=== PATIENT | female | born 1965 | race Caucasian/White ===

== ENCOUNTER 2020-01-04 02:44 | Outpatient (CLI) | payer OTHER, SELFPAY ==
[2020-01-04 18:57] LABS: SARS-CoV-2 RNA PCR Negative
== END 2020-01-04 02:45 | disposition home or self-care (01) ==
LOC: ANHCOVIDDT 02:44
PROVIDERS: PCP Family Medicine; Visit Provider Internal Medicine Gastroenterology
DX: Z01.812 Encounter for preprocedural laboratory examination (principal); Z11.59 Encounter for screening for other viral diseases
CPT/HCPCS: 87635; C9803; U0003

== ENCOUNTER 2020-01-07 01:01 | Day surgery (SDC) | payer OTHER, SELFPAY ==
[2019-12-31 09:10] VITALS: BMI 32.0
[2020-01-07 07:26] VITALS: BP 126/81; PULSE 84; RESP 18; TEMP 36.7; O2SAT 100
[2020-01-07] MEDS: LACTATED RINGERS 1,000 ML 150 ML IV CONT (07:43)
--- NOTE | 2020-01-07 07:45 | WPDANESEPPF ---
Anes - Initial Pre Proc Eval Procedure: Operation Date: 01/07/20 08:30 Proposed Procedures p Screening Colonoscopy - Francis Roach MD Date/Time: 01/07/20 07:45 Surgeon: Francis Roach MD Pre Op Diagnosis: neoplasm screening Patient Data Age: 54 Gender: F Height: 5 ft 6 in Weight: 92 kg Last Vital Signs Temp 98.0 F 01/07/20 07:26 Pulse 84 01/07/20 07:26 Resp 18 01/07/20 07:26 BP 126/81 01/07/20 07:26 Pulse Ox 100 01/07/20 07:26 Allergies Allergy/AdvReac Type Severity Reaction Status Date / Time poison seb extract Allergy Itching Verified 01/07/20 07:25 Home Medications Medication Instructions Recorded Confirmed Type No Home Medications 12/31/19 01/07/20 History Patient hx anesthesia problems: none Family hx anesthesia problems: none PMFSH Past Medical History Medical History (Updated 01/07/20 @ 07:45 by Khari Olson MD) Healthy adult Social History Social History Gender identity (if verbalized by the patient): Female Sexual Orientation (if Verbalized by the Patient): Straight or Heterosexual Anes - Eval Final PreProcedure Day of Procedure 01/07/20 07:45 Patient weight: overweight Heart: regular rate and rhythm Lungs: clear to auscultation Airway: Mallampati scale class II Neurological: alert and oriented Last oral intake: >/= 8 hours ASA classification: II Emergent: no Anesthetic plan: proceed Anesthesia type and monitoring: general GIVS and standard monitoring Informed Consent: The patient's anesthetic plan and its attendant risks and benefits were discussed with the patient/family/POA. Questions were solicited and answers provided to the satisfaction of the patient/family/POA.
--- NOTE | 2020-01-07 07:54 | WPDGICN ---
Assessment and Plan Assessment and plan (1) Colonoscopy planned: Status: Acute Assessment and Plan: Patient have neoplasia screening colonoscopy today. High-fiber diet advised. Further recommendations may be given after endoscopy. GI Consult Note Consult date/time: 01/07/20 07:54 HPI: Vikki Salazar is a 54 year old female Seen in evaluation at the request of Dr. Stephon Carpenter. Patient presents for screening colonoscopy. Patient's current weight appetite bowel was normal. She denies abdominal pain. She denies any bleeding. Her weight appetite bowel movements are normal. Family history is noncontributory as well. Review of Systems Review of Systems: All systems reviewed & are unremarkable except as noted in HPI and below PMFSH Past Medical History Medical History Healthy adult Social History Social History Gender identity (if verbalized by the patient): Female Sexual Orientation (if Verbalized by the Patient): Straight or Heterosexual Meds Home Medications and Allergies Home Medications Medication Instructions Recorded Confirmed Type No Home Medications 12/31/19 01/07/20 History Allergies Allergy/AdvReac Type Severity Reaction Status Date / Time poison seb extract Allergy Itching Verified 01/07/20 07:25 Vital Signs Vital Signs - 24 hr 01/07/20 07:26 Temperature 98.0 F Pulse Rate 84 Respiratory Rate 18 Blood Pressure 126/81 Pulse Oximetry 100 Exam Narrative: Exam Narrative: Physical exam reveals Vital Signs to be stable. HEENT exam unremarkable. Lungs are clear to auscultation and percussion. Heart is without murmur or extra sounds. Abdominal exam bowel sounds are present soft nontender with no hepatosplenomegaly. Digital external rectal exam is normal.
[2020-01-07 09:03] VITALS: BP 108/65; PULSE 68; RESP 16; O2SAT 100
[2020-01-07 09:13] VITALS: BP 117/75; PULSE 67; RESP 18; O2SAT 100
[2020-01-07 09:23] VITALS: BP 137/85; PULSE 62; RESP 19; O2SAT 100
== END 2020-01-07 09:33 | disposition home or self-care (01) ==
PROVIDERS: PCP Family Medicine; Visit Provider Internal Medicine Gastroenterology
PROC: 0DJD8ZZ Inspection of Lower Intestinal Tract, Via Natural or Artificial Opening Endoscopic (ICD-10-PCS; CPT 45378; principal; 2020-01-07 08:30)
DX: Z12.11 Encounter for screening for malignant neoplasm of colon (principal); D12.5 Benign neoplasm of sigmoid colon; K64.8 Other hemorrhoids
CPT/HCPCS: 45385; 87635; 88305; C9803; J2704; J7120; U0003

== ENCOUNTER 2020-09-07 08:16 | Emergency (ER) | payer SELFPAY | END 2020-09-07 08:30 | disposition left against medical advice (07) | LOC: EXPCOLL 08:24 | PROVIDERS: Emergency Provider Nurse Practitioner Family; PCP Family Medicine | DX: Z53.21 Procedure and treatment not carried out due to patient leaving prior to being seen by health care provider (principal) | CPT/HCPCS: 99199 ==

== ENCOUNTER 2021-03-13 13:09 | Outpatient (CLI) | payer OTHER, SELFPAY ==
--- NOTE | ~2021-03-13 | MM_ITS ---
EXAMINATION: MM diagnostic keisha BI w bety HISTORY: Follow-up bilateral breast asymmetries/masses TECHNIQUE: Additional 3-D tomosynthesis images of the breasts were performed and synthetic 2-D images were generated. CAD analysis was submitted and interpreted. COMPARISON: Comparison to multiple prior studies sequentially, with oldest reviewed study dated 03/30. BREAST PARENCHYMAL COMPOSITION: The breasts are heterogenously dense, which may obscure small masses FINDINGS: There are no new masses, calcifications or architectural distortion in either breast to sug gest malignancy. The breasts are stable. IMPRESSION: 1. No mammographic evidence for malignancy in either breast. 2. Routine yearly screening mammogram and regular clinical breast examination are recommended. BI-RADS Category 1: Negative Reviewed, dictated and finalized at location A. IMPRESSION: 1. No mammographic evidence for malignancy in either breast. 2. Routine yearly screening mammogram and regular clinical breast examination a re recommended. BI-RADS Category 1: Negative
== END 2021-03-13 13:10 | disposition home or self-care (01) ==
LOC: ANHIMG 13:12
PROVIDERS: PCP Family Medicine; Visit Provider Family Medicine
DX: R92.8 Other abnormal and inconclusive findings on diagnostic imaging of breast (principal)
CPT/HCPCS: 77062; 77066; G0279

== ENCOUNTER → 2021-04-27 11:15 | Outpatient (CLI) | payer OTHER, SELFPAY ==
--- NOTE | ~2021-04-27 | XR_ITS ---
EXAMINATION: XR knee RT 2V DATE: 04/27/2021 11:50 INDICATION: Right knee pain. TECHNIQUE: 2 views of right knee standing were obtained. COMPARISON: None. FINDINGS: Bone alignment is normal. No fracture. There is mild tricompartmental osteoarthritis charac terized by marginal osteophytes. No joint space narrowing. No knee joint effusion. IMPRESSION: 1. Mild right knee osteoarthritis. Reviewed, dictated and finalized at location A. IC CUTTER
== END ==
PROVIDERS: PCP Family Medicine; Visit Provider Physician Assistant
DX: M17.11 Unilateral primary osteoarthritis, right knee (principal)
CPT/HCPCS: 73560

== ENCOUNTER 2021-06-16 09:28 | Outpatient (CLI) | payer OTHER, SELFPAY ==
--- NOTE | ~2021-06-16 | MR_ITS ---
EXAMINATION: MR abdomen wo/w con DATE: 06/16/2021 10:40 INDICATION: Liver lesion seen on CT TECHNIQUE: Magnetic resonance imaging (MRI) of the abdomen was performed without and with 19 mL Multi jasson intravenous contrast. Sequences included coronal T2-weighted SS-FSE, coronal and axial FS 2D-F IESTA, axial STIR FSE, axial T2-weighted SS-FSE, axial T2-weighted FS SS-FSE, axial diffusion-weighte d SE, axial dual-echo T1-weighted FSPGR, and axial and coronal T1-weighted LAVA. Postcontrast axial T 1-weighted LAVA images were obtained in a time course. Postcontrast coronal T1-weighted LAVA images w ere obtained. COMPARISON: None FINDINGS: Heart size is normal. No pericardial or pleural effusion. 7.0 x 5.7 x 5.7 cm T2 hyperintense mass in segment 7 of the right hepatic lobe with lobular margins and with peripheral discontiguous puddling o f contrast which fills in on delayed images diagnostic of a hemangioma. There are 2 additional smalle r hemangiomas with similar imaging features measuring 2.0 cm also in segment 7 and 2.5 cm segment 6. Gallbladder, pancreas, spleen, bilateral adrenal glands and kidneys are normal. 4 cm fibroid at the p osterior uterine fundus. No pathologically enlarged abdominal lymphadenopathy. Moderate to severe lum bar spondylosis. IMPRESSION: 1. There are 3 hepatic hemangiomas in the right hepatic lobe, the largest measuring 7.0 cm. 2. 4 cm uterine fibroid. Reviewed, dictated and finalized at location A. 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 There are 3 hepatic hemangiomas in the right hepatic lobe, the largest measu ring 7.0 cm. 2. 4 cm uterine fibroid.
[2021-06-16 09:59] LABS: Estimated Glomerular Filt Rate > 60
== END 2021-06-16 09:29 | disposition home or self-care (01) ==
LOC: ANHIMG 09:36
PROVIDERS: PCP Family Medicine; Visit Provider Family Medicine
DX: K76.9 Liver disease, unspecified (principal); D25.9 Leiomyoma of uterus, unspecified
CPT/HCPCS: 74183; A9577

== ENCOUNTER 2021-08-20 08:11 | Outpatient (CLI) | payer OTHER, SELFPAY ==
[2021-08-20 08:40] LABS: Hematocrit 41.7 % (37.0-47.0); Hemoglobin 13.7 g/dL (12.0-15.0); Mean Corpuscular HGB Conc 32.9 g/dl (32-36); Mean Corpuscular Hemoglobin 29.5 pg (26-34); Mean Corpuscular Volume 89.7 fl (80-100); Mean Platelet Volume 9.1 fl (7.4-10.4); Platelet Count Result 250 k/mm3 (150-375); Red Blood Count 4.65 M/mm3 (4.2-5.4); Red Cell Distribution Width 13.4 % (11.5-14.5); White Blood Count 6.5 K/mm3 (4.5-10.0)
== END 2021-08-20 08:12 | disposition home or self-care (01) ==
PROVIDERS: PCP Family Medicine; Visit Provider Student in an Organized Health Care Education/Training Program
DX: D21.9 Benign neoplasm of connective and other soft tissue, unspecified (principal)
CPT/HCPCS: 36415; 85027; 86850; 86900; 86901

== ENCOUNTER 2021-08-27 00:13 | Day surgery (SDC) | payer OTHER, SELFPAY ==
[2021-08-18 09:52] VITALS: BMI 35.2
--- NOTE | 2021-08-18 10:09 | PC.NURSE ---
Report to the Outpatient Waiting Room, entrance under the green pavilion located off [facility], at time 10:00 on date 08/27/21. OR Time: 12:00. - You and your visitor will be asked a series of questions to screen for COVID 19 for your protection. - A mask is required within the hospital. One visitor will be allowed to accompany the patient into the hospital. Patients visitor will be instructed to remain with patient at all times or leave the building. We will allow the visitor to come back to the postoperative area when patient is ready. Preoperative COVID Testing Requirements: No COVID Test needed if: (proof is required; if not received patient will have Rapid Test prior to entry) - Patient has received COVID Vaccine at least 14 days prior to procedure date or - Patient has positive COVID test result within last 90 days of surgery date. COVID Test needed if above criteria is not met Patients may have clear liquids (water, carbonated beverages, clear teas, apple juice) until 3 hours prior to surgery (9:00) with a maximum of 20 ounces. - No food from midnight until time of surgery Take the following medications with a SIP of water the morning of surgery: NONE Medications to discontinue per physician: N/A Date to take last dose: N/A Please no make-up, nail icelandic, hairspray, perfume, deodorant, or body powder the day of surgery. No jewelry (including any body piercings) or valuables the day of surgery, leave them at home. Please take a shower or bath the night before, or the morning of, surgery with an antibacterial soap. Wear comfortable, loose fitting clothing. - Jewelry must be removed prior to entering the operating room. Rings and piercings that are not removed may be cut off. - The hospital will not accept responsibility for valuables. - Please leave all valuables, including medications, at home the day of surgery. If you are going home after surgery, a licensed entry level truck driver must drive you home. - NO public transportation without another adult. - We recommend that an adult stay with you for 24 hours following discharge. - We also recommend that you do not drive, make important decision, drink alcoholic beverages, or take any drugs that were not prescribed by your health care provider for at least 24 hours after your discharge time. Follow any additional instructions given to you from your surgeon. Telephone instructions given to RO ADAN and asked if any additional questions and then verbalized understanding. Patient advised to call surgeon office or pre surgery nurse liaison [phone] if any additional questions.
--- NOTE | 2021-08-26 07:45 | PM.IMHP ---
H&P: HPI History of Present Illness Date/Time: 08/26/21 07:45 Chief Complaint: abnormal uterine bleeding uterine fibroid dysmenorrhea Narrative: 55 yo female who presents for robotic TLH/BS for AUB-L and dysmenorrhea. Pt reports she was perimenopausal and had amenorrhea for several months. Pt then had sudden on set heavy painful vaginal bleeding. Pt states bleeding was sporadic. Pt bleeding caused her to be anemic and required iron supplementation. Pt had an incidental finding on CT scan that showed a uterine fibroid. Follow up US confirmed multiple uterine fibroids. Pt has tried medical management and has continued to have breakthrough bleeding. Pt elects for surgical management. Review of Systems Cardiovascular: Cardiovascular: Denies chest pain, Denies leg edema, Denies palpitations, Denies dyspnea and Denies dyspnea on exertion Respiratory: Respiratory: Denies cough, Denies dyspnea and Denies dyspnea on exertion Gastrointestinal: Gastrointestinal: Denies abdominal pain, Denies constipation, Denies diarrhea, Denies nausea and Denies vomiting Genitourinary: Genitourinary: Denies hematuria, Denies urinary frequency, Denies dysuria, Denies pelvic pain, Denies urinary incontinence and Denies vaginal discharge Neurologic: Reports system reviewed and no additional complaints, except as documented Psychiatric: Psychiatric: Reports no additional psychiatric complaints Endocrine: Endocrine: Denies palpitations PMFSH Past Medical History Medical History (Updated 08/26/21 @ 07:49 by Russ Joaquin MD) Healthy adult Social History Social History Smoking status: Never smoker Alcohol intake: current Alcohol use details: 2/MONTH Substance use: never Substance use type: does not use Gender identity (if verbalized by the patient): Female Sexual Orientation (if Verbalized by the Patient): Straight or Heterosexual Spiritual care concerns: No Meds Home Medications and Allergies Home Medications Medication Instructions Recorded Confirmed Type diphenhydramine HCl [Benadryl] 25 mg PO HS 08/18/21 08/18/21 History iaiyfhcgv-pnmfunric-nnjuxoirgh 1 tablet PO HS 08/18/21 08/18/21 History [Myfembree] Allergies Allergy/AdvReac Type Severity Reaction Status Date / Time poison seb extract Allergy Itching Verified 08/18/21 09:51 Exam Const: General: no acute distress Eyes: EOM: EOMs intact bilaterally Neck: Neck: supple Thyroid: thyroid normal Chest: Breast/axilla inspection: normal inspection of the breasts Breast/axilla palpation: normal palpation of the breasts, normal palpation of the axillae and no axillary lymphadenopathy Resp: Effort & Inspection: normal respiratory effort Auscultation: clear to auscultation bilaterally Cardio: Rate: regular rate Rhythm: regular rhythm GI: Inspection: non-distended GI Palp: Yes Soft to palpation, No Tenderness to palpation present (GI) and No Guarding due to palpation present (GI) Auscultation: normal bowel sounds : General: No bladder normal to palpation External Female Exam: normal external appearance Speculum Exam - Vagina: normal vaginal discharge and No vaginal bleeding Speculum Exam - Cervix: nontender Bimanual exam- vagina & uterus: No bladder normal to palpation, No Cervical tenderness present and enlarged OB/external & speculum: No vaginal bleeding Skin: General skin exam: normal color and no rashes or lesions noted Neuro: Cognition (Neuro): normal cognition Speech: normal speech Extrem: General: normal to inspection and no edema Psych: Mental Status: mental status grossly normal Affect: normal affect Assessment and Plan Assessment and plan (1) Abnormal uterine bleeding (AUB): Code(s): N93.9 - Abnormal uterine and vaginal bleeding, unspecified Status: Acute Assessment and Plan: pt c/o heavy vaginal bleeding leading to anemia pt on iron supplementation
--- NOTE | 2021-08-26 15:22 | P.PNAN_ITS ---
Anes - Initial Pre Proc Eval Procedure: Operation Date: 08/27/21 12:00 Proposed Procedures p Robotic Assisted Total Vaginal Hysterectomy with Bilateral Salpingectomy - Russ Joaquin MD Date/Time: 08/26/21 15:22 Surgeon: Russ Joaquin MD Pre Op Diagnosis: enlarged uterus, fibroids, dysmenorrhea , heavy bl Patient Data Age: 55 Gender: F Height: 1.68 m Weight: 98.88 kg Allergies Allergy/AdvReac Type Severity Reaction Status Date / Time No Known Allergies Allergy Verified 08/27/21 10:13 Home Medications Medication Instructions Recorded Confirmed Type diphenhydramine HCl [Benadryl] 25 mg PO HS 08/18/21 08/27/21 History kmbxmzqae-qtylgokap-rtkrnhvfej 1 tablet PO HS 08/18/21 08/27/21 History [Myf[place]ree] Patient hx anesthesia problems: none Family hx anesthesia problems: none Results Review: All pre-operative results and documents have been reviewed as part of the pre-operative evaluation. FORMERLY [facility], [facility] Past Medical History Medical History (Updated 08/26/21 @ 15:22 by Oni Tobar MD) Abnormal uterine bleeding (AUB) Arthritis Obesity Pelvic pain Uterine fibroid Social History Social History Smoking status: Never smoker Alcohol intake: current Alcohol use details: 2/MONTH Substance use: never Substance use type: does not use Living arrangements: with family Gender identity (if verbalized by the patient): Female Sexual Orientation (if Verbalized by the Patient): Straight or Heterosexual Spiritual care concerns: No Anes - Eval Final PreProcedure Day of Procedure 08/26/21 15:22 Patient weight: obese Heart: regular rate and rhythm Lungs: clear to auscultation and normal air movement Airway: Mallampati scale class II Neurological: alert and oriented Last oral intake: >/= 8 hours ASA classification: II Emergent: no Anesthetic plan: proceed Anesthesia type and monitoring: general ETT Results Review: All pre-operative results and documents have been reviewed as part of the pre-operative evaluation. Informed Consent: The patient's anesthetic plan and its attendant risks and benefits were discussed with the patient/family/POA. Questions were solicited and answers provided to the satisfaction of the patient/family/POA.
[2021-08-27] VITALS (7 sets, daily range): BP systolic 80–138; BP diastolic 54–85; PULSE 63–82; RESP 16–23; TEMP 36.2–37.1; O2SAT 97–100; BMI 34.3
--- NOTE | 2021-08-27 09:02 | WPDHPUPDATE1 ---
History and Physical Update Update Date/Time: 08/27/21 09:02 History and Physical has been reviewed, including an updated exam of the patient. There are NO changes in the patient's condition. Risks, benefits, and alternatives have been discussed and questions answered. Patient agrees to proceed with procedure.
[2021-08-27] MEDS: LACTATED RINGERS 1,000 ML 30 ML IV CONT ×2 (10:44→14:14)
[2021-08-27] MEDS: ACETAMINOPHEN 500 MG TABLET 1000 MG PO (10:45)
[2021-08-27] MEDS: KETOROLAC 15 MG/ML VIAL (*BKC) IV PUSH (10:45)
[2021-08-27] MEDS: ceFAZolin 2 GM/D5W 50 ML 2 GM/50 ML BAG IVPB (12:02)
[2021-08-27] MEDS: LIDO 1%/EPINEPHRINE 1:100,000 50 ML VIAL 25 ML INFILTRATE (12:22)
--- NOTE | 2021-08-27 14:00 | W.PM.PROC2 ---
Procedure Note - Detailed Date of Procedure 08/27/21 Pre-op Diagnosis enlarged uterus, fibroids, dysmenorrhea , heavy bl Post-op Diagnosis Same Procedure Performed robotic assisted total laparoscopic hysterectomy and bilateral salpingectomy 30 min lysis of adhesions Surgeon Russ Joaquin MD Anesthesia General Indications abnormal uterine bleeding Findings dense peritoneal adhesions to the left pelvic sidewall and the posterior uterus Description of Procedure After the patient was appropriately consented she was taken to the operating room where she was transferred to the table in a dorsal supine position. General anesthesia was then induced with endotracheal intubation. The patient was transferred to a dorsal lithotomy position using adjustable yellow-fin stirrups. Her position was adjusted for appropriate support of her lower back and lower extremities. The patient was prepped and draped. A transurethral deutsch catheter was place. The cervix was sequentially dilated and a CAMERON uterine manipulator placed in typical fashion about a 3cm LIYAH ring. Gloves were changed. After confirmation of a functioning orogastric tube, lidocaine was injected at Terry's point in the LUQ and a 8mm incision was made. A 5mm Optiview trocar was then inserted into the abdominal cavity under direct visualization and done so without complication. The abdomen was then insufflated with approximately 2-3L of CO2 establishing a pneumoperitoneum and the patient was placed in Trendelenburg position. Just above the umbilicus in the midline, a 8mm incision made after injection of lidocaine and a 8mm bladeless trocar advanced into the abdominal cavity under direct visualization without incident. We subsequently placed two robotic ports in a similar fashion, one in the left mid-quadrant and one in the right, 10cm lateral to the midline port. The robot was then docked. Attention was turned to the left pelvis. Pelvic survey showed a large amount of peritoneal adhesions to the posterior uterine fundus and the left lateral side wall. Pt was also noted to have peritoneal adhesions over the stomach. The left pelvic side wall adhesions were taken down with monopolar scissors. The adhesions to the posterior uterus was taken down to the level of the cervical os. The left fallopian tube was removed by sequentially dividing the mesosalpinx towards the uterus sparing the ovary. The utero-ovarian ligament was desiccated and transected, as was the round ligament. The posterior peritoneal leaf was taken down to the LIYAH ring. The anterior leaf was developed as well as the start of the bladder flap. The left uterine artery was then skeletonized and desiccated and transected just above the level of the LIYAH ring. Attention was turned to the right pelvis. The right fallopian tube was removed by sequentially dividing the mesosalpinx towards the uterus sparing the ovary. The utero-ovarian ligament was desiccated and transected, as was the round ligament. The posterior peritoneal leaf was taken down to the LIYAH ring. The anterior leaf was developed as well as the start of the bladder flap. The right uterine artery was then skeletonized and desiccated and transected just above the level of the LIYAH ring. The bladder was then further dissected inferiorly over the level of the LIYAH ring. A circumferential colpotomy was made using monopolar current. The uterus, cervix, bilateral tubes were then delivered transvaginally. I then placed a single figure of eight suture of 0-vicryl in the left corner of the vaginal cuff. I then re-approximated the colpotomy with a running #1 PDO Quill suture in 2 layers. Following this dissection, the abdomen and pelvis were copiously irrigated and all surgical sites found to be hemostatic. Skin sites were reapproximated with 4-0 Vicryl in a subcuticular fashion. Steri-Strips were placed. The patient tolerated the procedure well. Sponge, needle and instrument counts were correct x 2 and th
[2021-08-27] MEDS: fentaNYL CITRATE INJ (*CRX) 100 MCG/2 ML VIAL 25 MCG IV PUSH ×6 (14:34→15:20)
[2021-08-27] MEDS: ONDANSETRON INJ 4 MG/2 ML VIAL IV PUSH (15:00)
--- NOTE | 2021-08-27 15:50 | PC.NURSE ---
This patient, Vikki Salazar, was received from PACU on 08/27/21 at 1550. Patient/family oriented to unit policies and routines
[2021-08-27] MEDS: LACTATED RINGERS 1,000 ML 125 ML IV CONT ×2 (16:14→23:05)
[2021-08-27] MEDS: KETOROLAC 30 MG/ML VIAL (*BKC) IV PUSH (16:15)
[2021-08-27] MEDS: SENNA/DOCUSATE SODIUM TABLET 2 TAB PO (20:07)
[2021-08-27] MEDS: HYDROcodone/acetaminophen (*CRX) 5-325 MG TABLET 1 TAB PO (20:07)
[2021-08-28 00:15] VITALS: BP 127/70; PULSE 78; RESP 18; TEMP 37.2; O2SAT 100
[2021-08-28 03:42] LABS: Basophils Percent Auto 0.1 % (0.2-1.2); Hematocrit 36.2 % (37.0-47.0); Hemoglobin 12.2 g/dL (12.0-15.0); Immature Granulocyte Absolute 0.04 K/mm3 (0.00-0.031); Immature Granulocyte Percent A 0.3 % (0-0.5); Lymphocytes Absolute Auto 1.11 K/mm3 (0.9-3.2); Lymphocytes Percent Auto 8.9 % (18.3-44.2); Mean Corpuscular HGB Conc 33.7 g/dl (32-36); Mean Corpuscular Hemoglobin 30.3 pg (26-34); Mean Corpuscular Volume 89.8 fl (80-100); Mean Platelet Volume 9.5 fl (7.4-10.4); Monocytes Absolute Auto 0.6 K/mm3 (0.1-0.6); Neutrophils Absolute Auto 10.7 K/mm3 (1.3-6.7); Neutrophils Percent Auto 85.7 % (45.5-73.1); Platelet Count Result 233 k/mm3 (150-375); Red Blood Count 4.03 M/mm3 (4.2-5.4); Red Cell Distribution Width 13.2 % (11.5-14.5); White Blood Count 12.5 K/mm3 (4.5-10.0)
[2021-08-28 03:51] LABS: Anion Gap 6 mmol/L (8-16); Blood Urea Nitrogen 9 mg/dL (7-17); Calcium 8.6 mg/dL (8.4-10.2); Carbon Dioxide 26 mmol/L (22-30); Chloride 102 mmol/L (98-107); Estimated CRCL calculation 94 ml/min; Estimated Glomerular Filt Rate > 60; Glucose 153 mg/dL (65-110); Sodium 134 mmol/L (137-145)
[2021-08-28] MEDS: IBUPROFEN 600 MG TABLET PO ×3 (04:32→16:55)
[2021-08-28 04:42] VITALS: BP 129/67; PULSE 80; RESP 18; TEMP 36.8; O2SAT 97
[2021-08-28 07:30] VITALS: BP 140/78; PULSE 85; RESP 18; TEMP 36.9; O2SAT 98
--- NOTE | 2021-08-28 08:15 | PM.DS ---
DS: Admitting Diagnosis Discharge Date 08/28/21 Admitting Diagnosis abnormal uterine bleeding uterine fibroids DS: Summary Hospital Course Hospital Course: Vikki Salazar was admitted after robotic assisted total laparoscopic hysterectomy and bilateral salpingectomy for abnormal uterine bleeding. The above procedure was performed with no complications. She is doing well post op. She states her pain is well controlled with PO medications. She reports minimal bleeding. She is ambulating up to the chair. Her deutsch catheter was removed. She is tolerating PO without N/V. She reports passing flatus. Status at Discharge Overall status at discharge: patient is progressing back to baseline Time Spent with Patient Time attestation: Total time spent providing and/or coordinating discharge services: Time spent: Less than 30 minutes Exam Const: General: comfortable and no acute distress Limitations: no limitations Resp: Effort & Inspection: normal respiratory effort Auscultation: clear to auscultation bilaterally Cardio: Rate: regular rate Rhythm: regular rhythm GI: Inspection: non-distended GI Palp: Yes Soft to palpation, Yes Tenderness to palpation present (GI) (milder tenderness to deep palpation) and No Guarding due to palpation present (GI) Auscultation: normal bowel sounds Other: incisions C/D/I covered with dermabond Urinary Catheter: Urinary Catheter: urine clear Skin: General skin exam: normal color Extrem: General: normal to inspection Psych: Mental Status: mental status grossly normal Affect: normal affect DS: Data Data Completed and Pending Pending studies at discharge: Pending at discharge 08/27/21 14:47 Surgical [PTH] Routine Labs on day of discharge: Labs from last 24 hours 08/28/21 08/28/21 02:54 02:54 WBC 12.5 H RBC 4.03 L Hgb 12.2 Hct 36.2 L MCV 89.8 MCH 30.3 MCHC 33.7 RDW 13.2 Plt Count 233 MPV 9.5 Immature Gran % (Auto) 0.3 Neut % (Auto) 85.7 H Lymph % (Auto) 8.9 L Mills % (Auto) 5.0 Eos % (Auto) 0.0 Baso % (Auto) 0.1 L Lymph # (Auto) 1.11 Mills # (Auto) 0.6 Eos # (Auto) 0.0 Baso # (Auto) 0.0 Abs Immat Gran (auto) 0.04 H Absolute Neuts (auto) 10.7 H Absolute Nucleated RBC 0.0 Nucleated RBC % 0.0 Sodium 134 L Potassium 4.0 Chloride 102 Carbon Dioxide 26 Anion Gap 6 L BUN 9 Creatinine 0.70 Estim Creat Clear Calc 94 Estimated GFR > 60 Glucose 153 H Calcium 8.6 Discharge Plan Discharge Patient Disposition: Home, Self-Care Patient Instructions: Laparoscopic Hysterectomy (DC) Stand Alone Forms: General Discharge Instructions Follow-up/Referrals: Russ Joaquin MD [Physician] - 2 Weeks Discharge Medications: New oxycodone-acetaminophen 5-325 mg tablet 1 tablet PO Q6H PRN (Reason: pain) Qty: 30 RF: 0 sennosides-docusate sodium [Senokot-S] 8.6-50 mg Tablet 2 tab PO HS Qty: 30 RF: 0 ibuprofen 600 mg Tablet 600 mg PO Q6H PRN (Reason: Cramping) Qty: 30 RF: 0 Continued diphenhydramine HCl [Benadryl] 25 mg Capsule 25 mg PO HS RF: 0 Discontinued Myfembree 40-1-0.5 mg tablet 1 tablet PO HS RF: 0
--- NOTE | 2021-08-28 08:37 | P.PNAN_ITS ---
Anes - Prog Note Post-Op Date/Time: 08/28/21 08:37 Cardiovascular status: normal Respiratory status: normal Airway patency: baseline Mental status: baseline Post-Op hydration status: normal Vital Signs: Last Vital Signs Temp 36.8 C 08/28/21 04:42 Pulse 80 08/28/21 04:42 Resp 18 08/28/21 04:42 BP 129/67 08/28/21 04:42 Pulse Ox 97 08/28/21 04:42 Pain Score (VAS): 0 I/O: Intake & Output 08/27/21 08/28/21 08/28/21 23:59 07:59 15:59 Intake Total 1300 680 Output Total 300 1050 Balance 1000 -370 Laboratory Tests 08/28/21 02:54 08/28/21 02:54 08/28/21 08/28/21 02:54 02:54 WBC 12.5 H RBC 4.03 L Hgb 12.2 Hct 36.2 L MCV 89.8 MCH 30.3 MCHC 33.7 RDW 13.2 Plt Count 233 MPV 9.5 Immature Gran % (Auto) 0.3 Neut % (Auto) 85.7 H Lymph % (Auto) 8.9 L [place] % (Auto) 5.0 Eos % (Auto) 0.0 Baso % (Auto) 0.1 L Lymph # (Auto) 1.11 [place] # (Auto) 0.6 Eos # (Auto) 0.0 Baso # (Auto) 0.0 Abs Immat Gran (auto) 0.04 H Absolute Neuts (auto) 10.7 H Absolute Nucleated RBC 0.0 Nucleated RBC % 0.0 Sodium 134 L Potassium 4.0 Chloride 102 Carbon Dioxide 26 Anion Gap 6 L BUN 9 Creatinine 0.70 Estim Creat Clear Calc 94 Estimated GFR > 60 Glucose 153 H Calcium 8.6 Post-procedural complaints: none Patient Feedback: Patient satisfied with anesthetic care.
[2021-08-28] MEDS: HYDROcodone/acetaminophen (*CRX) 5-325 MG TABLET 1 TAB PO ×4 (08:50→16:53)
[2021-08-28] MEDS: SIMETHICONE 80 MG TAB.CHEW PO ×3 (09:00→15:14)
[2021-08-28 12:20] VITALS: BP 133/72; PULSE 76; RESP 18; TEMP 36.9; O2SAT 97
[2021-08-28 15:30] VITALS: BP 125/79; PULSE 84; RESP 18; TEMP 37.1; O2SAT 97
== END 2021-08-28 19:12 | disposition home or self-care (01) ==
LOC: ANHSURGERY 09:54 → ANHOB2 15:45
PROVIDERS: PCP Family Medicine; Visit Provider Student in an Organized Health Care Education/Training Program
PROC: (CPT 58573; principal; 2021-08-27 12:00)
DX: N94.6 Dysmenorrhea, unspecified (principal); D25.1 Intramural leiomyoma of uterus; D25.0 Submucous leiomyoma of uterus; D25.2 Subserosal leiomyoma of uterus; N73.6 Female pelvic peritoneal adhesions (postinfective); R10.2 Pelvic and perineal pain; D50.0 Iron deficiency anemia secondary to blood loss (chronic); N92.0 Excessive and frequent menstruation with regular cycle; N93.9 Abnormal uterine and vaginal bleeding, unspecified; N80.0 Endometriosis of uterus; E66.9 Obesity, unspecified; Z68.34 Body mass index [BMI] 34.0-34.9, adult; M19.90 Unspecified osteoarthritis, unspecified site
CPT/HCPCS: 58573; S2900; 36415; 80048; 85025; 88307; 99199; A9270; J0690; J1100; J1885; J2250; J2405; J2704; J2710; J3010; J7030; J7120

== ENCOUNTER 2021-09-03 16:24 | Emergency (ER) | payer OTHER, SELFPAY ==
--- NOTE | ~2021-09-03 | XR_ITS ---
XR abdomen obstructive series DATE: 09/03/2021 17:02 INDICATION: Constipation TECHNIQUE: Supine and upright AP views COMPARISON: 06/14/2021 MRI abdomen FINDINGS: The lower lung zones are clear. Heart size appears normal. No pleural effusion or pneumoper itoneum is evident. The psoas shadows are intact. No visceromegaly is evident. No significant abnormal calcification is n oted. No evidence of bowel obstruction. There is mild levoscoliosis of the lumbar spine with mild to moderate multilevel degenerative disc di sease, most pronounced at L2-3. IMPRESSION: Nonspecific abdomen Reviewed, dictated and finalized at [facility]. Reviewed, dictated and finalized at [facility]. IMPRESSION: Nonspecific abdomen
[2021-09-03 16:33] VITALS: BP 148/93; PULSE 98; RESP 18; TEMP 36.4; O2SAT 100
--- NOTE | 2021-09-03 16:59 | ED.GENADULT ---
HPI - General Adult General Chief complaint: Unspecified Stated complaint: constipation Time Seen by Provider: 09/03/21 16:29 History of Present Illness HPI narrative: Patient is a 55-year-old female with a history of recent hysterectomy (08/27) who presents for evaluation of 1 week of intermittent constipation. She states that she has not had a normal bowel movement in a week since her hysterectomy, however she has passed pebble-like stools on multiple occasions. She has been eating lots of soft foods, including Jell-O, applesauce, soups, and has been avoiding fiber. Patient was put on [place] for postoperative pain, which she stopped taking 4 days ago. She is also been taking MiraLAX every night in addition to trying to glycerin suppositories today without relief of her constipation. Has been passing flatus intermittently. She denies any blood in her stools, abdominal pain, nausea, vomiting, heavy vaginal bleeding. Related Data Home Medications Medication Instructions Recorded Confirmed diphenhydramine HCl [Benadryl] 25 mg PO HS 08/18/21 08/27/21 Allergies Allergy/AdvReac Type Severity Reaction Status Date / Time No Known Allergies Allergy Verified 08/27/21 10:13 Review of Systems Review of Systems: Gen.: Denies fevers or chills Eyes: Denies eye pain or visual change ENT: Denies congestion Respiratory: Denies shortness of breath or cough CV: Denies chest pain or palpitations GI: Reports constipation. Denies abdominal pain nausea, emesis or diarrhea denies burning, urgency, frequency or hematuria Musculoskeletal: Denies back pain or muscle pain Neuro: Denies numbness, tingling, weakness or focal weakness Skin: Denies rash Except as documented, all other systems reviewed and negative All systems reviewed & are unremarkable except as noted in HPI and below PMFSH Past Medical History Medical History (Updated 09/03/21 @ 17:48 by Chanda Ba PA-C) Abnormal uterine bleeding (AUB) Arthritis Obesity Pelvic pain Uterine fibroid Social History Social History Smoking status: Never smoker Alcohol intake: current Alcohol use details: 2/MONTH Substance use: never Substance use type: does not use Gender identity (if verbalized by the patient): Female Sexual Orientation (if Verbalized by the Patient): Straight or Heterosexual Spiritual care concerns: No Exam Narrative: APPEARANCE: Well appearing, no pain in distress, well-nourished. Head normocephalic and atraumatic. EYES: PERRLA/EOMI, conjunctivae clear NOSE: No nasal drainage EARS: External ear normal in appearance THROAT: Oropharynx is clear. Mucous membranes are moist. NECK: Supple. No adenopathy, no masses. RESPIRATORY: Airway patent, respirations nonlabored. Clear to auscultation bilaterally, no rales, rhonchi, wheezing. CARDIOVASCULAR: Regular rate and rhythm without murmurs, rubs, or gallops. ABDOMINAL: Surgical sites well-healing. Normoactive bowel sounds. Soft, nontender, nondistended. No rebound tenderness or guarding. : Scant amount of dried brown stool noted around anus. Rectum has good tone, with no internal impaction palpated. No blood noted. MUSCULOSKELETAL: Extremities are warm and well-perfused. Moves all extremities well. No edema. NEURO: Normal speech. No focal neurologic deficits. SKIN: Skin is warm and dry. No rashes. PSYCHIATRIC: Normal affect/mood. Course Vital Signs Vital signs: Vital Signs Temperature 97.6 F 09/03/21 16:33 Pulse Rate 98 09/03/21 16:33 Respiratory Rate 18 09/03/21 16:33 Blood Pressure 148/93 H 09/03/21 16:33 Pulse Oximetry 100 09/03/21 16:33 Temperature 97.6 F 09/03/21 16:33 Pulse Rate 98 09/03/21 16:33 Respiratory Rate 18 09/03/21 16:33 Blood Pressure 148/93 H 09/03/21 16:33 Pulse Oximetry 100 09/03/21 16:33 Medical Decision Making MDM Narrative Medical decision making narrative: 55-yea
== END 2021-09-03 18:19 | disposition home or self-care (01) ==
PROVIDERS: Emergency Provider Emergency Medicine; PCP Family Medicine
DX: K59.00 Constipation, unspecified (principal); M19.90 Unspecified osteoarthritis, unspecified site; E66.9 Obesity, unspecified; Z68.34 Body mass index [BMI] 34.0-34.9, adult
CPT/HCPCS: 74019; 99283

== ENCOUNTER 2022-01-01 07:09 | Outpatient (CLI) | payer OTHER, SELFPAY ==
--- NOTE | ~2022-01-01 | MR_ITS ---
EXAMINATION: MR knee RT wo con DATE: 01/01/2022 08:19 INDICATION: Right knee pain. TECHNIQUE: Magnetic resonance imaging (MRI) of the right knee was performed without intravenous contr ast. Sequences included axial PD-weighted FS FSE, coronal PD-weighted FSE and PD-weighted FS FSE, sag ittal PD-weighted FSE, and sagittal T2-weighted FS FSE. COMPARISON: Right knee radiographs 04/27/2021 FINDINGS: Medial compartment: There is a radial tear involving posterior horn and posterior root of medial meniscus. There is parti al-thickness cartilage loss of tibial condyle, deep at the central and medial articular surface with mild subchondral edema-like marrow signal intensity. There is partial-thickness cartilage loss of fem oral condyle, deep at the central, medial, and posterior articular surface with mild subchondral roge a-like marrow signal intensity. Osteophytes are noted. Lateral compartment: There is a vertical tear of body of lateral meniscus. There is a small area of full-thickness cartila ge loss of femoral condyle involving the central articular surface. There is cartilage surface irregu larity of tibial condyle. Osteophytes are noted. Patellofemoral compartment: There is full-thickness cartilage loss of patellar medial facet and median ridge with mild subchondra l edema-like marrow signal intensity. There is partial-thickness cartilage loss of patellar lateral f acet. There is deep partial thickness cartilage loss of medial trochlea. Osteophytes are noted. Ligaments and tendons: Anterior cruciate ligament demonstrates increased signal intensity. Posterior cruciate ligament is no rmal. There are changes of prior sprains of medial collateral ligament and fibular collateral ligamen t characterized by thickening and increased signal intensity proximally. There is mild patellar tendi nopathy. Fluid: There is a moderate-sized knee joint effusion. There is trace fluid in a Devine's cyst. There is mild prepatellar and superficial infrapatellar bursitis. IMPRESSION: 1. Severe chondrosis of patellofemoral compartment and moderate chondrosis of medial and lateral comp artments. 2. Tears of medial and lateral menisci. 3. Increased signal intensity in the anterior cruciate ligament, which may be mucoid degeneration or partial tear. 4. Moderate-sized knee joint effusion. Reviewed, dictated and finalized at [facility]. IMPRESSION: 1. Severe chondrosis of patellofemoral compartment and moderate chondrosis of m edial and lateral compartments. 2. Tears of medial and lateral menisci. 3. Increased signal intensity in the anterior cruciate ligament, which may be m ucoid degeneration or partial tear. 4. Moderate-sized knee joint effusion.
== END 2022-01-01 07:10 | disposition home or self-care (01) ==
PROVIDERS: PCP Family Medicine; Visit Provider Orthopaedic Surgery
DX: M25.461 Effusion, right knee (principal); S83.281A Other tear of lateral meniscus, current injury, right knee, initial encounter; S83.241A Other tear of medial meniscus, current injury, right knee, initial encounter; X58.XXXA Exposure to other specified factors, initial encounter
CPT/HCPCS: 73721

== ENCOUNTER 2022-01-25 01:42 | Day surgery (SDC) | payer OTHER, SELFPAY ==
[2022-01-19 12:14] VITALS: BMI 34.4
--- NOTE | 2022-01-19 12:25 | PC.NURSE ---
Report to the Outpatient Waiting Room, entrance under the green pavilion located off [facility], at time 0600 on date 01/25/22. OR Time: 0730. - You and your visitor will be asked to self-screen and do not enter if you have any COVID symptoms. - Only one visitor and NO children visitors are allowed at this time. - The patient visitor is requested to leave or wait in car when not with patient due to restrictions. - A mask is required within the hospital. Patients may have clear liquids (water, carbonated beverages, clear teas, apple juice) until 3 hours prior to surgery with a maximum of 20 ounces. - No food from midnight until time of surgery Take the following medications with a SIP of water the morning of surgery: NONE Medications to discontinue per physician: N/A Date to take last dose: N/A Please no make-up, nail estonian, hairspray, perfume, deodorant, or body powder the day of surgery. No jewelry (including any body piercings) or valuables the day of surgery, leave them at home. Please take a shower or bath the night before, or the morning of, surgery with an antibacterial soap. Wear comfortable, loose fitting clothing. - Jewelry must be removed prior to entering the operating room. Rings and piercings that are not removed may be cut off. - The hospital will not accept responsibility for valuables. - Please leave all valuables, including medications, at home the day of surgery. If you are going home after surgery, a licensed otr owner operator truck driver must drive you home. - NO public transportation without another adult. - We recommend that an adult stay with you for 24 hours following discharge. - We also recommend that you do not drive, make important decision, drink alcoholic beverages, or take any drugs that were not prescribed by your health care provider for at least 24 hours after your discharge time. Follow any additional instructions given to you from your surgeon. If you or anyone in your household have experienced Covid symptoms in the past week, please notify your surgeon or the nurse liaison at the phone number below for possible testing. Telephone instructions given to LEO ADAN and asked if any additional questions and then verbalized understanding. Patient advised to call surgeon office or pre surgery nurse liaison [phone] if any additional questions.
[2022-01-25] VITALS (8 sets, daily range): BP systolic 105–129; BP diastolic 57–89; PULSE 65–72; RESP 14–17; TEMP 36.2; O2SAT 95–100
[2022-01-25] MEDS: LACTATED RINGERS 1,000 ML 30 ML IV CONT ×2 (06:40→08:30)
[2022-01-25] MEDS: ACETAMINOPHEN 500 MG TABLET 1000 MG PO (06:40)
[2022-01-25] MEDS: KETOROLAC 15 MG/ML VIAL (*BKC) IV PUSH (06:41)
--- NOTE | 2022-01-25 06:50 | SUR.PREOP ---
PT STATES SHE HAS CRUTCHES AT HOME, INSTRUCTIONS ON PROPER ADJUSTMENT GIVE. CRUTCH TRAINING COMPLETED.
--- NOTE | 2022-01-25 07:09 | P.PNAN_ITS ---
Anes - Initial Pre Proc Eval Procedure: Operation Date: 01/25/22 07:30 Proposed Procedures p Right Knee Arthroscopy, with Meniscectomy - Garfield Newton MD Date/Time: 01/25/22 07:09 Surgeon: Garfield Newton MD Pre Op Diagnosis: right knee medial meniscal tear Patient Data Age: 56 Gender: F Height: 1.68 m Weight: 95.2 kg Allergies Allergy/AdvReac Type Severity Reaction Status Date / Time No Known Allergies Allergy Verified 01/25/22 06:24 Home Medications Medication Instructions Recorded Confirmed Type diclofenac sodium 75 mg 75 mg PO BID 12/24/21 01/25/22 History tablet,delayed release diphenhydramine HCl 25 mg capsule 25 mg PO HS 01/19/22 01/25/22 History (Benadryl) Patient hx anesthesia problems: none Family hx anesthesia problems: none Results Review: All pre-operative results and documents have been reviewed as part of the pre- operative evaluation. 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 Gender identity (if verbalized by the patient): Female Sexual Orientation (if Verbalized by the Patient): Straight or Heterosexual Spiritual care concerns: No Anes - Eval Final PreProcedure Day of Procedure 01/25/22 07:09 Patient weight: obese Heart: regular rate and rhythm Lungs: clear to auscultation Airway: Mallampati scale class II Neurological: alert and oriented Last oral intake: >/= 8 hours ASA classification: II Emergent: no Anesthetic plan: proceed Anesthesia type and monitoring: general LMA and standard monitoring Results Review: All pre-operative results and documents have been reviewed as part of the pre- operative evaluation. Informed Consent: The patient's anesthetic plan and its attendant risks and benefits were discussed with the patient/family/POA. Questions were solicited and answers provided to the satisfaction of the patient/family/POA.
--- NOTE | 2022-01-25 07:18 | WPDHPUPDATE1 ---
History and Physical Update Update Date/Time: 01/25/22 07:18 History and Physical has been reviewed, including an updated exam of the patient. There are NO changes in the patient's condition. Risks, benefits, and alternatives have been discussed and questions answered. Patient agrees to proceed with procedure.
[2022-01-25] MEDS: ceFAZolin 2 GM/D5W 50 ML 2 GM/50 ML BAG IVPB (07:30)
--- NOTE | 2022-01-25 08:41 | W.PM.PROC2 ---
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 After general anesthetic induction and intubation, a nonsterile tourniquet was placed high on the right thigh but was not inflated. The right lower extremity was positioned, prepped and draped in usual sterile fashion. 10 cc of 1% lidocaine was injected into the subcutaneous tissue in the area of the portals at start of the procedure, and an additional 10 at the end. The portals were established and the arthroscopy was carried out. Articular cartilage in all three compartments showed fraying and fibrillation. Anteriorly and laterally were grade 2 and perhaps early grade 3 change but medially there was focal areas of grade 4 change in medial tibial plateau. Extensive spurring noted at the medial femoral condyle which was quite irregular. There was a very large thick medial plical shelf which was rubbing along the entire articular margin of the medial femoral condyle as the knee was taken range of motion. This was resected with the shaver and then ArthroCare Wand was used for hemostasis. There was also a focal area of synovitis overlying the anterior horn of the medial meniscus. This was cauterized with the ArthroCare Wand. Lateral meniscus had some apical fraying but otherwise was in good shape. Anterior posterior cruciate ligaments were in continuity. Medial meniscus was stable. Was a little bit redundant at the posterior root but was intact. At undersurface of the meniscus near the junction of the posterior horn and midbody had extensive area of synovitis which was cauterized with the ArthroCare Wand. The knee was flushed with a copious amount of arthroscopic fluid and equipment was removed. Portals were closed with three O nylon suture and a sterile dressing was applied. She tolerated the procedure well, was awakened, extubated and taken to recovery area in stable condition. There were no known intraoperative complications. Estimated blood loss was negligible; she received perioperative antibiotics. Estimated Blood Loss 20 Tourniquet Time 0 Drains No Packing No Pathology None sent Complications No immediate complications Condition Stable Disposition PACU
[2022-01-25] MEDS: fentaNYL CITRATE INJ (*CRX) 100 MCG/2 ML VIAL 25 MCG IV PUSH (08:44)
[2022-01-25] MEDS: oxyCODONE HCL (*CRX) 5 MG TAB IR PO (09:45)
== END 2022-01-25 10:11 | disposition home or self-care (01) ==
PROVIDERS: PCP Family Medicine; Visit Provider Orthopaedic Surgery
PROC: (CPT 29870; principal; 2022-01-25 07:30)
DX: M67.51 Plica syndrome, right knee (principal); M17.11 Unilateral primary osteoarthritis, right knee; E66.9 Obesity, unspecified; Z68.33 Body mass index [BMI] 33.0-33.9, adult
CPT/HCPCS: 29876; A9270; J0690; J1100; J1885; J2250; J2370; J2405; J2704; J3010; J7120

== ENCOUNTER 2022-03-10 14:30 | Outpatient (RCR) | payer OTHER, SELFPAY ==
--- NOTE | 2022-01-27 10:33 | PTOPEVAL1 ---
Evaluation Information Assessment Status Evaluation Diagnosis R knee meniscectomy Onset 01/25/22 Subjective Information Pt reports she had a R medial knee meniscectomy on 01/25/22. She states her pain has been well controlled. Pt states she does a lot of heavy lifting for work. For work she usually stands and is up on her feet for 12 hours a day. She states prior to surgery she has been riding a stationary bike for 30 mins and then walks on the elliptical for 30 mins. Pt lives in a multilevel home with 3 [address] and an upper level bedroom, she has been sleeping in the living room. Reported Pain Level Pain Score 0: Self Report Assessment PT Clinical Summary Vikki presents to therapy today for her initial evaluation following a R knee meniscectomy performed on 01/25/22. Today she reports well managed pain. She demonstrates mild limitations in active ROM and knee strength this date. She demonstrates decreased gait speed from her baseline and requires the use of an AD for ambulation. She has 110 deg of active knee flexion and is currently lacking 28 deg from terminal knee extension during seated long arc quad. Skilled physical therapy services are indicated to address ROM and strength deficits, gait deviations, decreased functional mobility, and aims to return to baseline function. Plan of Care Interventions Gait Training,Hot Pack/Cold Pack,Manual Therapy, Neuro Re-education,Patient/Caregiver Educati, Therapeutic Activities,Therapeutic Exercise PT Services Indicated Yes Treatment Frequency and 2x/wk for 4 wks Duration These treatments will address the objective and functional deficits as defined above. The patient will be advanced safely and appropriately in order for the patient to progress towards his/her prior level of function. Additional exercises will be introduced and as well as a comprehensive home exercise program upon discharge, if needed, ?to ensure carryover of functional gains achieved in the clinic. This treatment plan has been reviewed and agreement upon by the patient.
--- NOTE | 2022-03-10 15:22 | PTOPDC ---
Assessment and note entered by Elly Littlejohn, PT, DPT Evaluation Information Assessment Status Discharge Diagnosis R knee meniscectomy Onset 01/25/22 Subjective Information Pt states things are going really well and she has no complaints. She has returned back to work at full capacity. She states she has been able to knee without any deficits. She also has not issues lifting. She reports no issues sleeping. She reports some stiffness first things in the morning . She reports 90% improvement in overall symptoms. Reported Pain Level Pain Score 0: Self Report Assessment PT Clinical Summary Vikki presents to therapy today for her progress report following 5 visits of therapy and participation in a home exercise program. Today she demonstrates no deviations during gait or stair ambulation. She demonstrates the ability to kneel with max flexion, demonstrate a floor to stand transfer without UE support, and perform all of the tasks needed to complete her work. She demonstrates equal knee ROM and strength arturo. She has met all of her therapy goals and will be discharged at this time. Plan of Care PT Services Indicated No Treatment Frequency and to be discharged Duration
== END 2022-03-17 09:08 | disposition home or self-care (01) ==
LOC: ANHGOSHPT 14:30
PROVIDERS: PCP Family Medicine; Visit Provider Orthopaedic Surgery
DX: Z48.89 Encounter for other specified surgical aftercare (principal); Z98.890 Other specified postprocedural states
CPT/HCPCS: 97110; 97112; 97116; 97161; 97530; 99199

== ENCOUNTER → 2022-07-29 11:46 | Outpatient (CLI) | payer OTHER, SELFPAY ==
--- NOTE | ~2022-07-29 | XR_ITS ---
Lumbosacral Spine: AP, oblique, and lateral views Clinical History: Pain Findings: The normal lordotic curve is maintained. No fracture identified. There is advanced degenera tive disc narrowing at L2-L3. Probable minimal grade 1 retrolisthesis of L2 over L3. Mild facet joint degenerative changes are present from L3 through S1. The sacroiliac joints are normally outlined. Impression: Probable minimal grade 1 retrolisthesis of L2 over L3. Advanced degenerative disc narrowing L2-L3. Facet arthropathy at the lower lumbar spine, as detailed above. Reviewed, dictated and finalized at location . [place] TRAINING MANAGER Impression: Probable minimal grade 1 retrolisthesis of L2 over L3. Advanced degenerative disc narrowing L2-L3. Facet arthropathy at the lower lumbar spine, as detailed above.
--- NOTE | ~2022-07-29 | XR_ITS ---
AP view of the pelvis Clinical history: Sacrococcygeal disorder Findings: No acute fracture or dislocation is seen. Osseous alignment is anatomic. Bilateral hip and SI joint spaces are preserved. Soft tissues are unremarkable. Impression: No significant abnormality is seen. Reviewed, dictated and finalized at [facility]. ESS FITTER Impression: No significant abnormality is seen.
== END ==
PROVIDERS: PCP Family Medicine; Visit Provider Family Medicine
DX: M53.3 Sacrococcygeal disorders, not elsewhere classified (principal)
CPT/HCPCS: 72110; 72170

== ENCOUNTER 2022-08-11 16:39 | Outpatient (CLI) | payer OTHER, SELFPAY ==
--- NOTE | ~2022-08-11 | MM_ITS ---
EXAMINATION: MM screening keisha BI w bety HISTORY: Screening mammogram TECHNIQUE: Craniocaudal and mediolateral oblique 3-D tomosynthesis images were obtained and synthetic 2-D images were generated. CAD analysis was submitted and interpreted. COMPARISON: 03/13/2021 diagnostic bilateral mammogram 10/09/2018 diagnostic bilateral mammogram and limited bilateral breast ultrasound examination 09/26/2018 bilateral screening mammogram BREAST PARENCHYMAL COMPOSITION: There are scattered areas of fibroglandular density. FINDINGS: There is no evidence of suspicious mass, calcification, or architectural distortion to sugg est malignancy in either breast. There has been no suspicious interval change. IMPRESSION: 1. No mammographic evidence of malignancy. 2. Recommend routine screening mammography in one year. BI-RADS Category 1: Negative Reviewed, dictated and finalized at [facility].
== END 2022-08-11 16:40 | disposition home or self-care (01) ==
LOC: ANHIMG 16:42
PROVIDERS: PCP Family Medicine; Visit Provider Student in an Organized Health Care Education/Training Program
DX: Z12.31 Encounter for screening mammogram for malignant neoplasm of breast (principal)
CPT/HCPCS: 77063; 77067

== ENCOUNTER 2023-01-13 17:28 | Emergency (ER) | payer OTHER, SELFPAY ==
[2023-01-13 17:34] VITALS: BP 113/67; PULSE 83; RESP 20; TEMP 36.2; O2SAT 99
--- NOTE | 2023-01-13 17:39 | ED.SKABFB ---
HPI - Skin/Abscess/Foreign Bdy General Chief complaint: Skin/Abscess/Foreign Body Stated complaint: Rash Time Seen by Provider: 01/13/23 17:40 Source: patient, RN notes reviewed and old records reviewed Mode of arrival: ambulatory Limitations: no limitations History of Present Illness HPI narrative: 57-year-old female to the [facility] bite to her wrist hand red area underneath right breast. States that she was stung a couple of days ago and has been putting hydrocortisone cream on it with no relief. States that she noticed the itching under her right breast and decided be seen for that. Related Data Home Medications Medication Instructions Recorded Confirmed diphenhydramine HCl 25 mg capsule 25 mg PO HS 01/19/22 12/02/22 (Benadryl) Allergies Allergy/AdvReac Type Severity Reaction Status Date / Time No Known Allergies Allergy Verified 12/02/22 09:11 Review of Systems Review of Systems: All systems reviewed & are unremarkable except as noted in HPI and below Constitutional: Constitutional: Reports no additional constitutional complaints Eyes: Eyes: Reports no additional eye complaints ENT: Reports system reviewed and no additional complaints, except as documented Cardiovascular: Cardiovascular: Reports no additional cardiovascular complaints, Denies chest pain and Denies dyspnea Respiratory: Respiratory: Reports no additional respiratory complaints, Denies chest congestion, Denies cough and Denies dyspnea Gastrointestinal: Gastrointestinal: Reports no additional gastrointestinal complaints, Denies abdominal pain, Denies nausea and Denies vomiting Musculoskeletal: Musculoskeletal: Reports no additional musculoskeletal complaints Integumentary/Breasts: Skin/Breast: Reports as per HPI Neurologic: Reports system reviewed and no additional complaints, except as documented Psychiatric: Psychiatric: Reports no additional psychiatric complaints Allergic/Immunologic: Allergic/Immunologic: Reports no additional allergic/immunologic complaints [facility] Past Medical History Medical History Degenerative arthritis of knee, bilateral Obesity Pure hypercholesterolemia, unspecified Surgical History Surgical History History of hysterectomy Status post arthroscopy of right knee January 25, 2022 - Primarily synovectomy Family History Family History Sibling Diabetes mellitus Grandparent Lung cancer Social History Social History Smoking status: Never smoker Alcohol intake: current Alcohol use details: social Substance use: never Substance use type: does not use Lack of Transportation: No Lack of Food: Never True Current Housing: I Have Housing Concerned About Future Housing: No Difficulty Paying Gas/Electric Bills: No Difficulty Paying for Meds: No Currently Unemployed: No Education: High School Diploma/GED Difficulty w/ Childcare or Family Care: No Living arrangements: with family Occupation/Education: occupation 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 There is no relevant family history pertinent to the patient complaint. Exam Const: General: cooperative, healthy appearing, comfortable, no acute distress, well developed, alert and well nourished Nutritional Appearance: well nourished Orientation/consciousness: patient oriented x3 Limitations: no limitations HENMT: Head: normal to inspection Ears: hearing grossly normal bila
== END 2023-01-13 17:55 | disposition home or self-care (01) ==
PROVIDERS: Emergency Provider Nurse Practitioner; PCP Family Medicine
DX: T63.441A Toxic effect of venom of bees, accidental (unintentional), initial encounter (principal); B37.2 Candidiasis of skin and nail; M17.0 Bilateral primary osteoarthritis of knee; E78.00 Pure hypercholesterolemia, unspecified; E66.9 Obesity, unspecified; Z68.34 Body mass index [BMI] 34.0-34.9, adult
CPT/HCPCS: 99213; G0463

== ENCOUNTER 2023-09-23 13:21 | Emergency (ER) | payer OTHER, SELFPAY ==
[2023-09-23 13:33] VITALS: BP 124/72; PULSE 74; RESP 16; TEMP 36.9; O2SAT 100
== END 2023-09-23 14:20 | disposition left against medical advice (07) ==
PROVIDERS: Emergency Provider Internal Medicine Hematology & Oncology; PCP Family Medicine
DX: Z53.21 Procedure and treatment not carried out due to patient leaving prior to being seen by health care provider (principal)
CPT/HCPCS: 99199

== ENCOUNTER 2023-09-23 15:28 | Emergency (ER) | payer OTHER, SELFPAY ==
--- NOTE | 2023-09-23 15:55 | ED.EAR ---
HPI - Ear Problem General Chief complaint: Ear Stated complaint: Ear Irritation/Headache Time Seen by Provider: 09/23/23 15:55 Source: patient Mode of arrival: ambulatory Limitations: no limitations History of Present Illness HPI Narrative: 57 yo F presents with c/o frontal headache for approx. 3 wks. States headaches are new for her and she does not normally have them. has been taking tylenol to treat pain and helping. No other sympotoms. today had pain more to L tempol area and her daughter told her she should get checked for ear infection. pt does not have pain to her ear. Has not called her PCP for appt for headaches. All systems reviewed and negative except as noted above. Related Data Home Medications Medication Instructions Recorded Confirmed diclofenac sodium 75 mg mg PO 09/23/23 tablet,delayed release Allergies Allergy/AdvReac Type Severity Reaction Status Date / Time No Known Allergies Allergy Verified 09/23/23 13:25 Review of Systems Review of Systems: CONSTITUTIONAL: Denies fever, chills, or sweats. EYES: Denies visual changes, redness, or discharge. ENT: Denies rhinorrhea, congestion, sore throat, or otalgia. CARDIOVASCULAR: Denies chest pain, palpitations, or edema. RESPIRATORY: Denies cough or dyspnea. GASTROINTESTINAL: Denies abdominal pain, nausea, vomiting, or diarrhea. GENITOURINARY: Denies dysuria or hematuria. SKIN: Denies rash or itching. MUSCULOSKELETAL: Denies back pain, joint pain, or myalgia. NEUROLOGIC:Reports headache. Denies numbness, or weakness. PSYCHIATRIC: Denies anxiety or depression. All other systems reviewed are negative, except as documented in HPI. [facility] Past Medical History Medical History Degenerative arthritis of knee, bilateral Obesity Pure hypercholesterolemia, unspecified Surgical History Surgical History History of hysterectomy Status post arthroscopy of right knee January 25, 2022 - Primarily synovectomy Family History Family History Sibling Diabetes mellitus Grandparent Lung cancer Social History Social History Smoking status: Never smoker Alcohol intake: current Drinks per week: 1 Alcohol use details: social Substance use: never Substance use type: does not use Do You Feel Safe in your Home?: Yes Lack of Transportation: No Lack of Food: Never True Current Housing: I Have Housing Concerned About Future Housing: No Difficulty Paying Gas/Electric Bills: No Difficulty Paying for Meds: No Currently Unemployed: No Education: High School Diploma/GED Difficulty w/ Childcare or Family Care: No Living arrangements: with family Occupation/Education: occupation 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 There is no relevant family history pertinent to the presenting complaint. Exam Narrative: GENERAL: This is a well-nourished, well-developed patient, in no apparent distress. HEAD: normocephalic, atraumatic. EYES: PERRL. Sclera clear/white. Vision is grossly intact. EARS: External ears normal, auditory canals clear and without drainage, TMs normal without perforation. Hearing grossly intact. NOSE: External nose normal with no obvious nasal discharge, nares without redness, no rhinorrhea. THROAT: Mucous membranes moist, posterior pharynx clear. NECK: Neck supple, non-tender without lymphadenopathy, masses or thyromegaly. CARDIOVASCULAR: Regular rate and rhythm without murmurs, gallops, or rubs. RESPIRATORY: Clear
== END 2023-09-23 16:15 | disposition home or self-care (01) ==
PROVIDERS: Emergency Provider Nurse Practitioner Family; PCP Family Medicine
DX: R51.9 Headache, unspecified (principal); M17.0 Bilateral primary osteoarthritis of knee; E78.00 Pure hypercholesterolemia, unspecified; E66.9 Obesity, unspecified
CPT/HCPCS: 99211; G0463

== ENCOUNTER 2023-10-03 15:32 | Outpatient (CLI) | payer OTHER, SELFPAY ==
--- NOTE | ~2023-10-03 | MM_ITS ---
EXAMINATION: MM screening [facility] BI w bety HISTORY: Screening mammogram TECHNIQUE: Craniocaudal and mediolateral oblique 3-D tomosynthesis images were obtained and synthetic 2-D images were generated. CAD analysis was submitted and interpreted. COMPARISON: 08/11/2022 bilateral screening mammogram 03/13/2021 diagnostic bilateral mammogram BREAST PARENCHYMAL COMPOSITION: There are scattered areas of fibroglandular density. FINDINGS: There is no evidence of suspicious mass, calcification, or architectural distortion to sugg est malignancy in either breast. There has been no suspicious interval change. IMPRESSION: 1. No mammographic evidence of malignancy. 2. Recommend routine screening mammography in one year. BI-RADS Category 1: Negative Reviewed, dictated and finalized at location B.
== END 2023-10-03 15:33 | disposition home or self-care (01) ==
LOC: ANHIMG 15:35
PROVIDERS: PCP Family Medicine; Visit Provider Family Medicine
DX: Z12.31 Encounter for screening mammogram for malignant neoplasm of breast (principal)
CPT/HCPCS: 77063; 77067

== ENCOUNTER 2024-01-30 09:04 | Emergency (ER) | payer OTHER, SELFPAY ==
[2024-01-30 09:25] VITALS: BP 132/78; PULSE 65; RESP 16; TEMP 37.1; O2SAT 16
--- NOTE | 2024-01-30 09:40 | ED.EAR ---
HPI - Ear Problem General Chief complaint: Ear Stated complaint: left ear issue Time Seen by Provider: 01/30/24 09:15 Source: patient, RN notes reviewed and old records reviewed Mode of arrival: ambulatory Limitations: no limitations History of Present Illness HPI Narrative: Patient presents with complaints of left ear pain and swelling. Symptoms began approximately 2 weeks ago with sensation of left ear fullness. She was started on amoxicillin, the symptoms continued to worsen. She amoxicillin was stopped, she was prescribed a Medrol Dosepak which she completed yesterday, and has been on Levaquin for 5 days. She reports that she had some reduction in symptoms while taking steroids, but awakened today and symptoms were worse once again. She has been compliant with all medications. She reports that ear pain is causing difficulty with sleeping. She denies any injury or trauma. She denies any fever, chills, sweats. Voices no other concerns or complaints at this time Related Data Allergies Allergy/AdvReac Type Severity Reaction Status Date / Time No Known Allergies Allergy Verified 01/30/24 09:09 Review of Systems Review of Systems: All systems reviewed & are unremarkable except as noted in HPI and below Constitutional: Constitutional: Reports as per HPI, Reports no additional constitutional complaints, Denies body ache(s), Denies chills, Denies fever(s) and Denies lethargy ENT: Reports system reviewed and no additional complaints, except as documented, Reports as per HPI and Reports otalgia Cardiovascular: Cardiovascular: Reports no additional cardiovascular complaints Respiratory: Respiratory: Reports no additional respiratory complaints Gastrointestinal: Gastrointestinal: Reports no additional gastrointestinal complaints [facility] Past Medical History Medical History Degenerative arthritis of knee, bilateral USP (current) use of non-steroidal anti-inflammatories (nsaid) Obesity Pure hypercholesterolemia, unspecified Surgical History Surgical History History of hysterectomy Status post arthroscopy of right knee January 25, 2022 - Primarily synovectomy Family History Family History Sibling Diabetes mellitus Grandparent Lung cancer Social History Social History Smoking status: Never smoker Alcohol intake: current Drinks per week: 1 Alcohol use details: social Substance use: never Substance use type: does not use Do You Feel Safe in your Home?: Yes Lack of Transportation: No Lack of Food: Never True Current Housing: I Have Housing Concerned About Future Housing: No Difficulty Paying Gas/Electric Bills: No Difficulty Paying for Meds: No Currently Unemployed: No Education: High School Diploma/GED Difficulty w/ Childcare or Family Care: No Living arrangements: with family Occupation/Education: occupation 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 [employer] Gender identity (if verbalized by the patient): Female Sexual Orientation (if Verbalized by the Patient): Straight or Heterosexual Spiritual care concerns: No Exam Const: General: cooperative, no acute distress, alert and awake Orientation/consciousness: oriented to person, oriented to place and oriented to time HENMT: Head: normal to inspection Ears: TM normal on the right, Abnormal EAC present EAC tenderness diffuse, unable to visualize TM on the left and other (Entire left outer ear swollen, tender, red) Throat: posterior oropharynx normal Resp: Effort & Inspection: normal respiratory effort and able to speak in complete sentences Auscultation: clear to auscultation bilaterally, no crackles, no rales, no rhonchi and no wheezes Cardio: Palpation: normal PMI Rate: regular rat
== END 2024-01-30 09:50 | disposition home or self-care (01) ==
PROVIDERS: Emergency Provider Nurse Practitioner Family; PCP Family Medicine
DX: H60.12 Cellulitis of left external ear (principal); M17.0 Bilateral primary osteoarthritis of knee; E78.00 Pure hypercholesterolemia, unspecified; E66.9 Obesity, unspecified; Z68.34 Body mass index [BMI] 34.0-34.9, adult
CPT/HCPCS: 99213; G0463

== ENCOUNTER 2024-05-02 17:09 | Emergency (ER) | payer OTHER, SELFPAY ==
[2024-05-02 17:22] VITALS: BP 140/72; PULSE 80; RESP 16; TEMP 36; O2SAT 99
[2024-05-02 17:24] VITALS: BP 140/72; PULSE 80; RESP 16; TEMP 36; O2SAT 99
--- NOTE | 2024-05-02 17:34 | ED_ITS ---
HPI - Skin/Abscess/Foreign Bdy General Chief complaint: Skin/Abscess/Foreign Body Stated complaint: hands itch,nail issue Time Seen by Provider: 05/02/24 17:34 Source: patient Mode of arrival: ambulatory Limitations: no limitations History of Present Illness HPI narrative: 58 yo F presents with itching around nails and to fingertips. Pt has been wearing acrylic nails since 2008. States fingers started to split and peel a few wks ago. Thought was possibly allergic reaction to nail georgian so georgian was changed. continued to have problems so nails removed. has been applying vaseline at night with no improvement. had drainage from L thumb nail yesterday. Has white spots to several nails, concerned for fungal infection. All systems reviewed and negative except as noted above. Related Data Allergies Allergy/AdvReac Type Severity Reaction Status Date / Time No Known Allergies Allergy Verified 05/02/24 17:23 Review of Systems Review of Systems: CONSTITUTIONAL: Denies fever, chills, or sweats. EYES: Denies visual changes, redness, or discharge. ENT: Denies rhinorrhea, congestion, sore throat, or otalgia. CARDIOVASCULAR: Denies chest pain, palpitations, or edema. RESPIRATORY: Denies cough or dyspnea. GASTROINTESTINAL: Denies abdominal pain, nausea, vomiting, or diarrhea. GENITOURINARY: Denies dysuria or hematuria. SKIN: reports dry, cracking skin to tips of fingers, itching, white spots to nails. MUSCULOSKELETAL: Denies back pain, joint pain, or myalgia. NEUROLOGIC: Denies headache, numbness, or weakness. PSYCHIATRIC: Denies anxiety or depression. All other systems reviewed are negative, except as documented in HPI. 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 (nsaid) Obesity Pure hypercholesterolemia, unspecified Surgical History Surgical History History of hysterectomy Status post arthroscopy of right knee January 25, 2022 - Primarily synovectomy Family History Family History Sibling Diabetes mellitus Grandparent Lung cancer Social History Social History Smoking status: Never smoker Alcohol intake: current Drinks per week: 1 Alcohol use details: social Substance use: never Substance use type: does not use Do You Feel Safe in your Home?: Yes Lack of Transportation: No Lack of Food: Never True Current Housing: I Have Housing Concerned About Future Housing: No Difficulty Paying Gas/Electric Bills: No Difficulty Paying for Meds: No Currently Unemployed: No Education: High School Diploma/GED Difficulty w/ Childcare or Family Care: No Living arrangements: with family Occupation/Education: occupation 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 There is no relevant family history pertinent to the presenting complaint. Exam Narrative: GENERAL: This is a well-nourished, well-developed patient, in no apparent distress. HEAD: normocephalic, atraumatic. EYES: PERRL. Sclera clear/white. Vision is grossly intact. EARS: External ears normal NOSE: External nose normal NECK: Neck supple, non-tender without lymphadenopathy, masses or thyromegaly. CARDIOVASCULAR: Regular rate and rhythm without murmurs, gallops, or rubs. RESPIRATORY: Clear to auscultation. Breath sounds equal bilaterally. No wheezes, rales, or rhonchi. SKIN: skin around nails and to tips of fingers is dry, peeling and cracking. skin around R thumb nail is erythematous, no drainage noted but pt notes some there yesterday. R thumb nail black streaks to nail bed with white spots. several other nails white spots. NEURO: awake, alert, and oriented to person, place and time. There were no obvious focal neurologic abnormalities. EXTREMITIES: No joint tenderness, effusion, or edema noted. Course Course Level of Care: Express Care Visit Vital Signs Vital signs: Vital Signs Temperature 36.0 C L 05/02/24 17:22 Pulse Rate 80 05/02/24 17:22 Respiratory Rate 16 05/02/24 17:22 Blood Pressure 140/72 05/02/24 17:22 Pulse Oximetry 99 05/02/24 17:22 Oxygen Delivery Autopap 05/02/24 17:22 Temperature 36.0 C L 05/02/24 17:24 Pulse Rate 80 05/02/24 17:24 Respiratory Rate 16 05/02/24 17:24 Blood Pressure 140/72 05/02/24 17:24 Pulse Oximetry 99 05/02/24 17:24 Oxygen Delivery Autopap 05/02/24 17:24 Discharge Plan Discharge Clinical Impression: Fungal infection of nail, Contact dermatitis, Cellulitis of right thumb Patient Disposition: Home, Self-Care Condition: Stable Instructions: Antibiotic Form Additional Instructions: Take medications as prescribed. Apply triamcinolone cream with Vaseline or Aquaphor twice a day. Do not apply new acrylic nails until all symptoms have resolved. Follow-up with activities volunteer if symptoms are not improving. Prescriptions: New efinaconazole 10 % solution with applicator 1 applic topical DAILY 336 Days Qty: 8 0RF cephalexin 500 mg capsule 500 mg PO Q8H 7 Days Qty: 21 0RF methylprednisolone [Medrol (Gilberto)] 4 mg tablets,dose pack See Rx Instructions PO .COMPLEX Qty: 21 0RF Rx Instructions: orally per package directions triamcinolone acetonide 0.1 % cream 1 applic topical BID PRN (Reason: eczema) Qty: 30 0RF Follow-up/Referrals: Stephon Carpenter MD [Primary Care Provider] - Time of Disposition: 17:46
== END 2024-05-02 18:00 | disposition home or self-care (01) ==
PROVIDERS: Emergency Provider Nurse Practitioner Family; PCP Family Medicine
DX: B35.1 Tinea unguium (principal); L25.9 Unspecified contact dermatitis, unspecified cause; L03.011 Cellulitis of right finger; E66.9 Obesity, unspecified; Z68.35 Body mass index [BMI] 35.0-35.9, adult; E78.00 Pure hypercholesterolemia, unspecified
CPT/HCPCS: 99213; G0463

== ENCOUNTER 2024-10-03 09:28 | Outpatient (CLI) | payer OTHER, SELFPAY ==
--- NOTE | ~2024-10-03 | MM_ITS ---
EXAMINATION: MM screening [facility] BI w bety HISTORY: Screening TECHNIQUE: Craniocaudal and mediolateral oblique 3-D tomosynthesis images were obtained and synthetic 2-D images were generated. CAD analysis was submitted and interpreted. COMPARISON: Comparison to multiple prior studies sequentially, with oldest reviewed study dated 05/01. BREAST PARENCHYMAL COMPOSITION: Not dense: There are scattered areas of fibroglandular density. FINDINGS: Small benign-appearing low-density bilateral breast masses are stable or diminished in size compared with prior studies, considered benign. There is no evidence of suspicious mass, calcificati on, or architectural distortion to suggest malignancy in either breast. There has been no suspicious interval change. IMPRESSION: 1. No mammographic evidence of malignancy. 2. Recommend routine screening mammography in one year. BI-RADS Category 2: Benign finding(s). Reviewed, dictated and finalized at location A.
--- OUTSIDE RECORDS SUMMARY | 2024-10-03 09:54 | XMS_ITS | Clinical Summary ---
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 Gender Identity Not on file Sexual Orientation Not on file Plan of Treatment Health Maintenance Due Date Last Done Comments Hepatitis C Virus (HCV) Screening 1965 TdaP Immunization 1965 Hepatitis B Immunization (1 of 3 - 19+ 3-dose series) 10/02/1986 Pap Smear 10/02/1988 Cervical Cancer Screening (CCS) 10/02/1997 HPV/Cotest 10/02/1997 Colonoscopy 10/02/2012 Colorectal Cancer Screening 10/02/2012 Cologuard 10/02/2017 Immunochemical Fecal Occult Blood 10/02/2017 Mammogram 10/02/2017 Pneumococcal Immunization (5 0+ years) (1 of 1 - PCV) 10/02/2017 Zoster Immunization (1 of 2) 10/02/2017 Influenza Immunization (#1) 01/29/202402/27, 03/15/2019, 03/04/2015 SARS-COV-2 Immunization (2023- season) 2024 Respiratory Syncytial Virus (RSV) Immunization (Adult) (1 - 1-dose 75+ series) 10/02/2042 Meningococcal Immunization (ACWY) Aged Out No longer eligible b ased on patient's age to complete this topic Pneumococcal Immunization Combined Aged Out No longer eligible b ased on patient's age to complete this topic Rotavirus Immunization Aged Out No lo nger eligible based on patient's age to complete this topic
--- OUTSIDE RECORDS SUMMARY | 2024-10-03 09:54 | XMS_ITS | Clinical Summary ---
Author Organization [facility] Address [address] [place] [address] Care Team Providers Care Skein Straightener Name Role Phone Stephon Carpenter MD Primary Care Provider [phone] Allergies No known active allergies Medications FEROSUL 325 (65 Fe) MG tablet Take 1 tablet by mouth daily. 03/27/2021 Active sulindac 200 MG tablet Take 1 tablet by mouth 2 (two) times a day. 05/14/2021 Active Estradiol-Noreth indrone Acet 0.5-0.1 MG Tab Take 1 tablet by mouth daily. 05/11/2021 Active Active Problems Problem Noted Date Diagnosed Date Arthritis 05/20/2021 Chest pain Social History Tobacco Use Types Packs/Day Years Used Date Smoking Tobacco: Never Smokeless Tobacco: Never Alcohol Use Standard Drinks/Week Comments Yes 0 (1 standard drink = 0.6 oz pur e alcohol) beer sometimes Comments No Sex and Gender Information Value Date Recorded Sex Assigned at Not on file Legal Sex Female 9:40 PM CDT Gender Identity Not on file Sexual Orientation Not on file Last Filed Vital Signs Vital Sign Reading Time Taken Comments Blood Pressure 128/80 05/20/2021 10:52 AM CRACKER OFF Pulse 79 05/20/2021 10:52 AM CRACKER OFF Temperature 36.7 C (98 F) 05/11/2021 9:03 PM CRACKER OFF Respiratory Rate 16 05/11/2021 11:20 PM CRACKER OFF Oxygen Saturation 97% 05/20/2021 10:52 AM CRACKER OFF Inhaled Oxygen Concentration - - Weight 99.3 kg (219 lb) 05/20/2021 10:52 AM CRACKER OFF Height 167.6 cm (5' 6 ) 05/20/2021 10:52 AM CRACKER OFF Body Mass Index 35.35 05/20/2021 10:52 AM CRACKER OFF Plan of Treatment Health Maintenance Due Date Last Done Comments Cervical Cancer Screening Pa p Smear (Age 30 to 64) Every 3 Years 1967 Colorectal Cancer Screening Colonoscopy (10 Years) 1967 Annual Physical 10/02/1970 Hepatitis C 10/02/1985 DTaP, Tdap and Td Vaccines ( 1 - Tdap) 10/02/1986 Hepatitis B Vaccines (1 of 3 - 19+ 3-dose series) 10/02/1986 Cervical Cancer Screening Pa p with HPV Testing (Age 30 to 64) Every 5 Years 10/02/1997 Cervical Cancer Screening wi th HPV 10/02/1997 Mammogram Screening 2007 Pneumococcal Vaccine: 50+ Years (1 of 1 - PCV) 10/02/2017 Zoster Vaccines (1 of 2) 10/02/2017 COVID-19 Vaccine (3 - 2023-2 5 season) 2024 04/04/2021, 07/02/2020 Meningococcal B Vaccine Aged Out No l onger eligible based on patient's age to complete this topic Meningococcal Vaccine Aged Out No jie guero eligible based on patient's age to complete this topic RSV Immunizations Under 20 Months Aged Out No longer eligible b ased on patient's age [place] [id number] Care Teams Skein Straightener Relationship Specialty Start Date End Date Stephon Carpenter MD [address] [place] [address] PCP - General FAMILY PRACTICE 05/12/21
== END 2024-10-03 09:29 | disposition home or self-care (01) ==
LOC: ANHIMG 09:30
PROVIDERS: PCP Family Medicine; Visit Provider Student in an Organized Health Care Education/Training Program
DX: Z12.31 Encounter for screening mammogram for malignant neoplasm of breast (principal)
CPT/HCPCS: 77063; 77067

== ENCOUNTER 2025-02-11 03:12 | Day surgery (SDC) | payer OTHER, SELFPAY ==
[2025-01-24 14:11] VITALS: BMI 35.2
--- OUTSIDE RECORDS SUMMARY | 2025-02-11 03:15 | XMS_ITS | Clinical Summary ---
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 Gender Identity Not on file Sexual Orientation Not on file Plan of Treatment Health Maintenance Due Date Last Done Comments Hepatitis C Virus (HCV) Screening 1965 TdaP Immunization 1965 Hepatitis B Immunization (1 of 3 - 19+ 3-dose series) 10/02/1986 Pap Smear 10/02/1988 Cervical Cancer Screening (CCS) 10/02/1997 HPV/Cotest 10/02/1997 Cologuard 10/02/2012 Colonoscopy 10/02/2012 Colorectal Cancer Screening 10/02/2012 Immunochemical Fecal Occult Blood 10/02/2012 Pneumococcal Immunization (5 0+ years) (1 of 1 - PCV) 10/02/2017 Zoster Immunization (1 of 2) 10/02/2017 SARS-COV-2 Immunization ( - season) 2024 Influenza Immunization (#1) 01/28/202502/27, 03/15/2019, 03/04/2015 Respiratory Syncytial Virus (RSV) Immunization (Adult) (1 - 1-dose 75+ series) 10/02/2042 Human Papillomavirus (HPV) Immunization Aged Out No longer eligible b ased on patient's age to complete this topic Meningococcal Immunization (ACWY) Aged Out No longer eligible b ased on patient's age to complete this topic Rotavirus Immunization Aged Out No lo nger eligible based on patient's age to complete this topic
--- OUTSIDE RECORDS SUMMARY | 2025-02-11 03:15 | XMS_ITS | Clinical Summary ---
Author Organization [facility] Address [address] [place] [address] Care Team Providers Care Robot Programmer Name Role Phone Stephon Carpenter MD Primary Care Provider [phone] Allergies No known active allergies Medications FEROSUL [...] Comments Blood Pressure 128/80 05/20/2021 10:52 AM WELDER APPRENTICE ARC Pulse 79 05/20/2021 10:52 AM WELDER APPRENTICE ARC Temperature 36.7 C (98 F) 05/11/2021 9:03 PM WELDER APPRENTICE ARC Respiratory Rate 16 05/11/2021 11:20 PM WELDER APPRENTICE ARC Oxygen Saturation 97% 05/20/2021 10:52 AM WELDER APPRENTICE ARC Inhaled Oxygen Concentration - - Weight 99.3 kg (219 lb) 05/20/2021 10:52 AM WELDER APPRENTICE ARC Height 167.6 cm (5' 6) 05/20/2021 10:52 AM WELDER APPRENTICE ARC Body Mass Index 35.35 05/20/2021 10:52 AM WELDER APPRENTICE ARC Plan of Treatment Health Maintenance Due Date [...] of 2) 10/02/2017 COVID-19 Vaccine (3 - 2024-2 6 season) 2025 04/04/2021, 07/02/2020 Meningococcal B Vaccine Aged Out No l onger eligible based on patient's age to complete this topic Meningococcal Vaccine Aged Out No jie guero eligible based on patient's age to complete this topic RSV Immunizations Under 20 Months Aged Out No longer eligible b ased on patient's age to complete this topic Insurance Care Teams Robot Programmer Relationship Specialty Start Date End Date Stephon Carpenter MD [address] [place] [address] PCP - General FAMILY PRACTICE 05/12/21
[2025-02-11 09:30] VITALS: BP 109/83; PULSE 87; RESP 18; TEMP 36.6; O2SAT 99
--- NOTE | 2025-02-11 09:39 | WPDANESEPPF ---
Anes - Initial Pre Proc Eval Procedure: Operation Date: 02/11/25 10:30 Proposed Procedures p Screening Colonoscopy - Toribio Osuna MD Date/Time: 02/11/25 09:39 Surgeon: Toribio Osuna MD Pre Op Diagnosis: Personal history of colon polyps/screening Patient Data Age: 59 Gender: F Height: 1.68 m Weight: 94.4 kg Last Vital Signs Temp 97.9 F 02/11/25 09:30 Pulse 87 02/11/25 09:30 Resp 18 02/11/25 09:30 BP 109/83 02/11/25 09:30 Pulse Ox 99 02/11/25 09:30 O2 Del Method Room Air 02/11/25 09:30 Allergies Allergy/AdvReac Type Severity Reaction Status Date / Time No Known Allergies Allergy Verified 02/11/25 09:29 Home Medications ?Medication ?Instructions ?Recorded ?Confirmed ?Type No Home Medications 01/10/25 01/24/25 History Patient hx anesthesia problems: none Family hx anesthesia problems: none Results Review: All pre-operative results and documents have been reviewed as part of the pre-operative evaluation. [facility] Past Medical History Medical History Abnormal fasting glucose Screening mammogram for breast cancer rn long term care (current) use of non-steroidal anti-inflammatories (nsaid) Degenerative arthritis of knee, bilateral Pure hypercholesterolemia, unspecified Obesity Surgical History Surgical History Status post arthroscopy of right knee January 25, 2022 - Primarily synovectomy History of hysterectomy Family History Family History Sibling Diabetes mellitus Grandparent Lung cancer Social History Social History Smoking status: Never smoker Alcohol intake: current Drinks per week: 1 Alcohol use details: social Substance use: never Substance use type: does not use Do You Feel Safe in your Home?: Yes Lack of Transportation: No Lack of Food: Never True Current Housing: I Have Housing Concerned About Future Housing: No Difficulty Paying Gas/Electric Bills: No Difficulty Paying for Meds: No Currently Unemployed: No Education: High School Diploma/GED Difficulty w/ Childcare or Family Care: No Living arrangements: with family Occupation/Education: occupation 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 Informed Consent: The patient's anesthetic plan and its attendant risks and benefits were discussed with the patient/family/POA. Questions were solicited and answers provided to the satisfaction of the patient/family/POA.
[2025-02-11] MEDS: LACTATED RINGERS 1,000 ML 150 ML IV CONT (09:40)
--- NOTE | 2025-02-11 10:35 | PM.IMHP ---
H&P: HPI History of Present Illness Date/Time: 02/11/25 10:35 Chief Complaint: History of colon polyps Narrative: The patient has a history of colonic polyps, the last colonoscopy was 5 years ago. 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) use of non-steroidal anti-inflammatories (nsaid) Degenerative arthritis of knee, bilateral Pure hypercholesterolemia, unspecified Obesity Surgical History Surgical History Status post arthroscopy of right knee January 25, 2022 - Primarily synovectomy History of hysterectomy Family History Family History Sibling Diabetes mellitus Grandparent Lung cancer Social History Social History Smoking status: Never smoker Alcohol intake: current Drinks per week: 1 Alcohol use details: social Substance use: never Substance use type: does not use Do You Feel Safe in your Home?: Yes Lack of Transportation: No Lack of Food: Never True Current Housing: I Have Housing Concerned About Future Housing: No Difficulty Paying Gas/Electric Bills: No Difficulty Paying for Meds: No Currently Unemployed: No Education: High School Diploma/GED Difficulty w/ Childcare or Family Care: No Living arrangements: with family Occupation/Education: occupation 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 [employer] Gender identity (if verbalized by the patient): Female Sexual Orientation (if Verbalized by the Patient): Straight or Heterosexual Spiritual care concerns: No Meds Home Medications and Allergies Home Medications ?Medication ?Instructions ?Recorded ?Confirmed ?Type No Home Medications 01/10/25 01/24/25 History Allergies Allergy/AdvReac Type Severity Reaction Status Date / Time No Known Allergies Allergy Verified 02/11/25 09:29 Vital Signs Vital Signs - 24 hr 02/11/25 09:30 Temperature 97.9 F Pulse Rate 87 Respiratory Rate 18 Blood Pressure 109/83 Pulse Oximetry 99 Oxygen Delivery Room Air Exam Const: General: cooperative and healthy appearing Resp: Effort & Inspection: normal respiratory effort and able to speak in complete sentences Auscultation: clear to auscultation bilaterally Cardio: Rate: regular rate Rhythm: regular rhythm GI: Inspection: normal to inspection GI Palp: No No hepatosplenomegaly present Auscultation: normal bowel sounds Rectal Exam: deferred Skin: General skin exam: normal color Psych: Appearance: grossly normal Mental Status: mental status grossly normal Assessment and Plan Assessment and plan (1) History of colonic polyps: Code(s): Z86.0100 - Personal history of colon polyps, unspecified Status: Acute Assessment and Plan: The patient is deemed a good candidate for the procedure. Consent signed. Will proceed.
--- NOTE | 2025-02-11 11:05 | S_PTH ---
PATIENT: Vikki Salazar LOC: [facility] U#:[id number] AGE/SX: 59/F ROOM: RE02/11/[address]: Toribio Osuna MD : 1965 BED: DIS: 02/11/2025 SPEC #: [id number] RECD: 02/11/25 11:37 STATUS: MENG REBautista #: [id number] DOROTHY: 02/11/25 11:[address]: Toribio Osuna DEPT: [facility] Surgical RECD BY: Barb Martínez ENTERED: 02/11/25 11:38 SP TYPE: Surgical OTHR DR: Stephon Carpenter MD Tissues: A - Colon Polypectomy Procedures: Hematoxylin and Eosin Stain Gross and Microscopic Level 4
[2025-02-11 11:08] VITALS: BP 102/60; PULSE 63; RESP 22; O2SAT 99
[2025-02-11 11:18] VITALS: BP 107/64; PULSE 65; RESP 15; O2SAT 100
[2025-02-11 11:28] VITALS: BP 120/69; PULSE 60; RESP 15; O2SAT 100
== END 2025-02-11 11:50 | disposition home or self-care (01) ==
PROVIDERS: PCP Family Medicine; Referring Provider Family Medicine; Visit Provider Internal Medicine Gastroenterology
PROC: 0DJD8ZZ Inspection of Lower Intestinal Tract, Via Natural or Artificial Opening Endoscopic (ICD-10-PCS; CPT 45378; principal; 2025-02-11 10:30)
DX: Z12.11 Encounter for screening for malignant neoplasm of colon (principal); D12.5 Benign neoplasm of sigmoid colon; M17.0 Bilateral primary osteoarthritis of knee; E78.00 Pure hypercholesterolemia, unspecified; Z79.1 Long term (current) use of non-steroidal anti-inflammatories (NSAID); Z98.890 Other specified postprocedural states; Z80.3 Family history of malignant neoplasm of breast
CPT/HCPCS: 45385; 88305; J2704; J7120

== ENCOUNTER 2025-03-01 08:09 | Emergency (ER) | payer OTHER, SELFPAY ==
--- NOTE | 2025-03-01 08:11 | ED_ITS ---
HPI - URI/Sore Throat General Chief Complaint: Upper Respiratory Infection Stated Complaint: Sore Throat Time Seen by Provider: 03/01/25 08:18 Source: patient, RN notes reviewed and old records reviewed Mode of arrival: ambulatory Limitations: no limitations History of Present Illness HPI Narrative: 59-year-old female presents to the [facility] with complaints of a sore throat, drainage since Tuesday, 5 days. Has taken Mucinex, DayQuil and NyQuil. Onset (ago): day(s) (5) Treatments prior to arrival: cold medicine Related Data Home Medications ?Medication ?Instructions ?Recorded ?Confirmed ?Last Taken ?Type No Home Medications 01/10/25 03/01/25 U nknown History Allergies Allergy/AdvReac Type Severity Reaction Status Date / Time No Known Allergies Allergy Verified 03/01/25 08:15 Review of Systems Review of Systems: All systems reviewed & are unremarkable except as noted in HPI and below Constitutional: Constitutional: Reports no additional constitutional complaints ENT: Reports as per HPI and Reports sore throat Cardiovascular: Cardiovascular: Reports no additional cardiovascular complaints, Denies chest pain and Denies dyspnea Respiratory: Respiratory: Reports no additional respiratory complaints, Denies chest congestion, Denies cough and Denies dyspnea Musculoskeletal: Musculoskeletal: Reports no additional musculoskeletal complaints Integumentary/Breasts: Skin/Breast: Reports system reviewed and no additional complaints, except as docu PMFSH Past Medical History Medical History Abnormal fasting glucose Screening mammogram for breast cancer snf (current) use of non-steroidal anti-inflammatories (nsaid) Degenerative arthritis of knee, bilateral Pure hypercholesterolemia, unspecified Obesity Surgical History Surgical History Status post arthroscopy of right knee January 25, 2022 - Primarily synovectomy History of hysterectomy Family History Family History Sibling Diabetes mellitus Grandparent Lung cancer Social History Social History Smoking status: Never smoker Alcohol intake: current Drinks per week: 1 Alcohol use details: social Substance use: never Substance use type: does not use Do You Feel Safe in your Home?: Yes Lack of Transportation: No Lack of Food: Never True Current Housing: I Have Housing Concerned About Future Housing: No Difficulty Paying Gas/Electric Bills: No Difficulty Paying for Meds: No Currently Unemployed: No Education: High School Diploma/GED Difficulty w/ Childcare or Family Care: No Living arrangements: with family Occupation/Education: occupation 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 There is no relevant family history per tinent to the patient complaint. Exam Const: General: cooperative, healthy appearing, comfortable, no acute distress, well developed, alert and well nourished Nutritional Appearance: well nourished Orientation/consciousness: patient oriented x3 Limitations: no limitations HENMT: Head: normal to inspection Ears: hearing grossly normal bilaterally, external ears normal, TM's normal bilaterally, EAC's normal, mastoids normal and no periauricular adenopathy Mouth: Yes Normal oral and palatal mucosa present , Yes lip normal, Yes tongue normal and Yes moist mucous membranes Throat: uvula midline, posterior oropharynx abnormal cobblestoning; no edema and no exudates, postnasal drainage and no uvular edema Eyes: General: appearance normal, both eyes and all related structures Alignment and Position: alignment normal Neck: Neck: normal visual inspection, full ROM, no lymphadenopathy and no meningeal signs Chest: Chest palpation & inspection: normal inspection of the chest Resp: Effort & Inspection: normal respiratory effort and able to speak in complete sentences Auscultation: clear to auscultation bilaterally, no crackles, no rales, no rhonchi and no wheezes Cardio: Rate: regular rate Skin: General skin exam: normal color and no rashes or lesions noted Neuro: General: patient oriented x3, gait normal, moves all extremities and no meningeal signs Cognition (Neuro): normal cognition Speech: normal speech Gait exam (Neuro): Normal gait present Extrem: General: normal to inspection, full ROM, capillary refill normal and normal gait Psych: Appearance: grossly normal and well kempt Mental Status: mental status grossly normal Speech and movement: Normal speech and movement present and Clear speech present Affect: normal affect Attitude: cooperative Course Course Level of Care: Express Care Visit Vital Signs Vital signs: Vital Signs Temperature 97.8 F 03/01/25 08:16 Pulse Rate 85 03/01/25 08:16 Respiratory Rate 16 03/01/25 08:16 Blood Pressure 137/84 03/01/25 08:16 Pulse Oximetry 97 03/01/25 08:16 Oxygen Delivery Room Air 03/01/25 08:16 Temperature 97.8 F 03/01/25 08:16 Pulse Rate 85 03/01/25 08:16 Respiratory Rate 16 03/01/25 08:16 Blood Pressure 137/84 03/01/25 08:16 Pulse Oximetry 97 03/01/25 08:16 Oxygen Delivery Room Air 03/01/25 08:16 Reviewed MDM - URI/Sore Throat MDM Narrative Medical decision making narrative: Patient sitting in exam room. Patient is nontoxic, vitals stable. Patient presents 5 day history of URI symptoms. Flu, COVID, strep were negative. Will culture strep Discharge instructions reviewed with patient, as well as provided in writing per nursing staff. The instructions also include specific and strict return/GO TO THE ER as well as f/u information. All questions have been answered, and the patient deny any further questions wi th discharge and discharge plan. Some parts of this dictation were generated by voice recognition software and may contain typographical and/or grammatical inaccuracies. Differential Diagnosis Differential diagnosis: Likely upper respiratory infection, otitis media, sinusitis, viral infection, bronchitis, influenza and pharyngitis Lab Data Labs: Lab Results 03/01/25 Range/Units 08:27 POC Influenza A Ag Negative (Negative) POC Influenza B Ag Negative (Negative) POC SARS CoV-2 Ag Negative (Negative) POC Grp A Strep Screen Negative (Negative) Critical Care Time Critical Care Time Critical Care Time: No Discharge Plan Discharge Clinical Impression: Upper respiratory infection, PND (post-nasal drip) Patient Disposition: Home Condition: Stable Instructions: Antibiotic Form, Upper Respiratory Infection (ED), Postnasal Drip (DC) Additional Instructions: Your rapid strep swab was negative today at [facility]. A throat culture will be sent to the laboratory for further testing. If the test is positive, you will receive a phone call within 48 hours and an appropriate antibiotic will be initiated at that time. Your rapid COVID test were negative Your rapid flu test was negative Your symptoms are likely due to a viral illness, which is not treated with antibiotics. Typically viral infections last 7-10 days, can linger for couple of weeks. It is very important to treat your symptoms. Drink plenty of water, Gatorade, Pedialyte, ice pops or Jell-O. -Alternate Tylenol and Motrin per package directions for fever or pain. You can alternate every 4 hours -Antihistamine medication such as Zyrtec/Claritin/Kendra during the day can help improve symptoms. -doing daily nasal irrigations can help relieve pressure your sinuses. Things like a Neti pot -Use Flonase twice a day for 5 days then daily to help reduce the inflammation and dry up your sinuses. -You can also use Mucinex. Be sure to drink plenty of water with this medication at least 8 ounces with every dose and it is important to drink 8 to 10 glasses of water per day. Water is a natural decongestant -Eat and drink things that are easy to swallow, like tea or soup, or popsicles. -Oral rinses such as: Salt water gargles and/or may use topical anesthetic (eg. Chloraseptic spray) or lozenges to relieve dryness or throat pain). -Frequent hand washing or hand footwear sales representative is one of the best ways to prevent spread of infection. -Using a vaporizer or humidifier at night will also help thin secretions and help with coughing up phlegm. -Follow up with primary care provider in 7-10 days if condition is not improving - For new or worsening symptoms go directly to the nearest ER Patient Language: Kinyarwanda Prescriptions: No Action No Home Medications Follow-up/Referrals: Stephon Carpenter MD [Primary Care Provider, Family Practice] - 2 Weeks Stand Alone Forms: Work/School Release IP Time of Disposition: 08:47
[2025-03-01 08:16] VITALS: BP 137/84; PULSE 85; RESP 16; TEMP 36.6; O2SAT 97
[2025-03-01 08:46] LABS: EDCOVIDSCREEN Negative (Negative); EDINFLUASCREEN Negative (Negative); EDINFLUBSCREEN Negative (Negative); EDSTREPNEGPOS1 Negative (Negative)
== END 2025-03-01 08:52 | disposition home or self-care (01) ==
PROVIDERS: Emergency Provider Nurse Practitioner; PCP Family Medicine
DX: J06.9 Acute upper respiratory infection, unspecified (principal); R09.82 Postnasal drip; Z20.822 Contact with and (suspected) exposure to COVID-19; E78.00 Pure hypercholesterolemia, unspecified; E66.9 Obesity, unspecified; Z68.35 Body mass index [BMI] 35.0-35.9, adult; M17.0 Bilateral primary osteoarthritis of knee
CPT/HCPCS: 87081; 87426; 87804; 87880; 99213; G0463

== ENCOUNTER 2025-03-16 12:29 | Emergency (ER) | payer OTHER, SELFPAY ==
--- NOTE | 2025-03-16 12:31 | ED_ITS ---
HPI - URI/Sore Throat General Chief Complaint: Upper Respiratory Infection Stated Complaint: Sinus Time Seen by Provider: 03/16/25 12:30 Source: patient Mode of arrival: ambulatory Limitations: no limitations History of Present Illness HPI Narrative: Patient is a 59-year-old female who presents with 2 weeks of frontal headache, congestion, drainage, sore throat and cough. Patient states her symptoms improved a week ago but then worsened. Patient was seen here 03/01. Denies any fever, chills, nausea, vomiting, diarrhea. Related Data Allergies Allergy/AdvReac Type Severity Reaction Status Date / Time No Known Allergies Allergy Verified 03/16/25 12:44 Review of Systems Review of Systems: All systems reviewed & are unremarkable except as noted in HPI and below Constitutional: Constitutional: Denies chills, Denies fatigue, Denies fever(s), Reports headache(s), Denies malaise and Denies weakness Eyes: Eyes: Denies blurry vision, Denies itchy eyes and Denies loss of vision ENT: Denies otalgia, Reports headache(s), Reports nasal congestion, Reports sinus pain, Reports sinus pressure and Reports sore throat Cardiovascular: Cardiovascular: Denies chest pain, Denies irregular heart rhythm and Denies dyspnea Respiratory: Respiratory: Reports cough and Denies dyspnea Gastrointestinal: Gastrointestinal: Denies abdominal pain, Denies diarrhea, Denies nausea and Denies vomiting Musculoskeletal: Musculoskeletal: Denies back pain, Denies myalgias and Denies arthralgias Integumentary/Breasts: Skin/Breast: Denies pruritus and Denies rash Neurologic: Reports headache(s), Denies loss of vision and Denies weakness Psychiatric: Psychiatric: Reports no additional psychiatric complaints Endocrine: Endocrine: Denies fatigue Allergic/Immunologic: Allergic/Immunologic: Denies itchy eyes PMFSH Past Medical History Medical History Abnormal fasting glucose Screening mammogram for breast cancer 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) use of non-steroidal anti-inflammatories (nsaid) Degenerative arthritis of knee, bilateral Pure hypercholesterolemia, unspecified Obesity Surgical History Surgical History Status post arthroscopy of right knee January 25, 2022 - Primarily synovectomy History of hysterectomy Family History Family History Sibling Diabetes mellitus Grandparent Lung cancer Social History Social History Smoking status: Never smoker Alcohol intake: current Drinks per week: 1 Alcohol use details: social Substance use: never Substance use type: does not use Do You Feel Safe in your Home?: Yes Lack of Transportation: No Lack of Food: Never True Current Housing: I Have Housing Concerned About Future Housing: No Difficulty Paying Gas/Electric Bills: No Difficulty Paying for Meds: No Currently Unemployed: No Education: High School Diploma/GED Difficulty w/ Childcare or Family Care: No Living arrangements: with family Occupation/Education: occupation 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 There is no relevant family history pertinent to the presenting complaint. Exam Const: General: cooperative, healthy appearing, comfortable, no acute distress and well nourished Nutritional Appearance: well nourished Orientation/consciousness: patient oriented x3 Limitations: no limitations HENMT: Head: normal to inspection, normocephalic and atraumatic Ears: hearing grossly normal bilaterally, external ears normal, TM's normal bilaterally, EAC's normal and no periauricular adenopathy Face/Nose/Sinus: Normal external nose present, Abnormal mucous membranes and turbinates present erythematous bilateral and diffuse, normal facial exam, face symmetric and Facial tenderness on exam of face and sinuses Face and sinus: normal facial exam and face symmetric Mouth: Yes Normal oral and palatal mucosa present, Yes lip normal, Yes tongue normal, Yes Normal salivary glands and ducts present, Yes oropharynx normal and Yes moist mucous membranes Teeth and gingiva: dentition normal Throat: posterior oropharynx normal, tonsils normal and uvula midline Eyes: General: appearance normal, both eyes and all related structures Alignment and Position: alignment normal and position normal Periorbital: periorbital findings normal Eyelids: eyelids normal Pupils: Equal, round and reactive pupils present Neck: Neck: normal visual inspection, full ROM, no lymphadenopathy and supple Chest: Chest palpation & inspection: normal inspection of the chest and normal palpation of entire chest wall Resp: Effort & Inspection: normal respiratory effort and able to speak in complete sentences Auscultation: clear to auscultation bilaterally, no crackles, no rales, no rhonchi and no wheezes Cardio: Rate: regular rate Rhythm: regular rhythm Heart sounds: S1 normal heart sound present and S2 normal heart sound present GI: Inspection: normal to inspection Skin: General skin exam: normal color and no rashes or lesions noted Neuro: General: patient oriented x3 and moves all extremities Cranial nerves: Yes Equal, round and reactive pupils present Speech: normal speech Gait exam (Neuro): Normal gait present Extrem: General: normal to inspection, full ROM and no edema Psych: Appearance: grossly normal and well kempt Mental Status: mental status grossly normal Speech and movement: Normal speech and movement present Affect: normal affect Attitude: cooperative Thought process: Normal thought process present Course Course Emergency Course: Discharge instructions reviewed with patient, as well as provided in writing per nursing staff. The instructions also include specific and strict return/GO TO THE ER as well as f/u information. All questions have been answered, and the patient deny any further questions with discharge and discharge plan. Portions of this record may have been created with voice recognition software Level of Care: Express Care Visit Vital Signs Vital signs: Vital Signs Temperature 36.6 C 03/16/25 12:42 Pulse Rate 79 03/16/25 12:42 Respiratory Rate 18 03/16/25 12:42 Blood Pressure 138/80 03/16/25 12:42 Pulse Oximetry 99 03/16/25 12:42 Oxygen Delivery Room Air 03/16/25 12:42 Temperature 36.6 C 03/16/25 12:42 Pulse Rate 79 03/16/25 12:42 Respiratory Rate 18 03/16/25 12:42 Blood Pressure 138/80 03/16/25 12:42 Pulse Oximetry 99 03/16/25 12:42 Oxygen Delivery Room Air 03/16/25 12:42 Reviewed MDM - URI/Sore Throat MDM Narrative Medical decision making narrative: Pt well hydrated appearing, in no respiratory distress, hemodynamically stable. Recommend supportive care. The patient is stable at time of discharge the cl inical impression was discussed and the patient was given the opportunity to ask questions, which were addressed as completely as possible given the information available at present. Anticipatory guidance and return to care precautions were discussed and the importance of primary care follow-up was stressed and encouraged. The patient voiced understanding of the plan, indications to return, and the need for follow-up. Exam findings show no acute concerns or changes Patient is appropriate for outpatient treatment and follow-up. Differential diagnosis considered: Regalado virus, strep pharyngitis, allergic rhinitis, upper respiratory tract infection, sinusitis, rhinosinusitis, nasopharyngitis. viral pharyngitis, otitis media, otitis externa, otitis effusion, foreign body, cerumen impaction, viral syndrome, and influenza.? Medical Records Attestation: I reviewed the patient's medical records. Discharge Plan Discharge Clinical Impression: Sinusitis Qualifiers: Sinusitis location: frontal Chronicity: acute Recurrence: non-recurrent Qualified Code(s): J01.10 - Acute frontal sinusitis, unspecified Patient Disposition: Home Condition: Stable Instructions: Sinusitis (ED) Additional Instructions: Take antibiotic as prescribed. Take steroids in the morning with food. Other symptomatic treatments include: -Alternate Tylenol and Motrin per package directions for fever or pain: Tylenol 650-1000mg by mouth every 4-6 hours. Do not exceed 4000mg in 24 hours. Advil (Ibuprofen) 600 mg by mouth every 6 hours. Do not exceed 2400mg in 24 hours. 8 AM: Tylenol 11 AM: Ibuprofen 2 PM: Tylenol 5 PM: Ibuprofen 8 PM: Tylenol 11 PM: Ibuprofen 2 AM: Tylenol 5 AM: Ibuprofen -Antihistamine medication such as Benadryl at night and Zyrtec/Claritin/Kendra during the day can help improve symptoms. -Use Flonase twice a day for 5 days then daily to help reduce the inflammation and dry up your sinuses. -You can also use Sudafed or Mucinex. Be sure to drink plenty of water with these medications at least 8 ounces with every dose and it is important to drink 8 to 10 glasses of water per day. Water is a natural decongestant -Eat and drink things that are easy to swallow, like tea or soup, or popsicles. -Oral rinses such as: Salt water gargles and/or may use topical anesthetic (eg. Chloraseptic spray) or lozenges to relieve dryness or throat pain). -Frequent hand washing or hand neurodiagnostic tech is one of the best ways to prevent spread of infection. -Using a vaporizer or humidifier at night will also help thin secretions and help with coughing up phlegm. Call your Primary Care Doctor and make a follow-up appointment in 3 days. If your cough worsens, you develop a fever greater than 103, you develop shaking chills, a fast heartbeat, trouble breathing and/or feel you are are breathing much faster than usual, call your Primary Care Doctor or go to the ER. Patient Language: [place] Prescriptions: New prednisone 20 mg tablet 40 mg PO DAILY 5 Days Qty: 10 0RF fluticasone propionate [Flonase Allergy Relief] 50 mcg/actuation spray,usman pension 1 spray intranasal DAILY Qty: 16 0RF Rx Instructions: administer into each nostril amoxicillin-pot clavulanate 875-125 mg tablet 1 tablet PO Q12H 10 Days Qty: 20 0RF Follow-up/Referrals: Stephon Carpenter MD [Primary Care Provider, Family Practice] - 3 Days Time of Disposition: 13:14
[2025-03-16 12:42] VITALS: BP 138/80; PULSE 79; RESP 18; TEMP 36.6; O2SAT 99
== END 2025-03-16 13:20 | disposition home or self-care (01) ==
PROVIDERS: Emergency Provider Nurse Practitioner Family; PCP Family Medicine
DX: J01.10 Acute frontal sinusitis, unspecified (principal); E78.00 Pure hypercholesterolemia, unspecified; E66.9 Obesity, unspecified; Z68.35 Body mass index [BMI] 35.0-35.9, adult; M17.0 Bilateral primary osteoarthritis of knee
CPT/HCPCS: 99213; G0463

== ENCOUNTER 2025-05-07 08:45 | Outpatient (RCR) | payer OTHER, SELFPAY ==
--- NOTE | 2025-03-20 11:01 | OPREHPOC ---
Outpatient Therapy Plan of Care This is a Multidisciplinary Plan of Care that may contain components documented by all disciplines (PT, OT, and ST.) PT Problem 1 PT Problem #1 Knowledge Deficit PT Goal 1 Goal / Goal Update 1. Patient to demonstrate independence with HEP for improved self-reliance of symptom management. Target Visit 4 PT Problem 2 PT Problem #2 Pain PT Goal 1 Goal / Goal Update 1. Patient to decrease subjective reports of pain to <3/10 for improved ADL tolerance. Target Visit 8 PT Problem 3 PT Problem #3 Impaired Strength PT Goal 1 Goal / Goal Update 1. Patient to demonstrate Alberto quadricep strength > =5/5 for improved stability prior to upcoming surgery. 2. Patient will demonstrate improved strength of the bilateral hip abductors and extensors to 4+/5 on manual muscle testing in order to improve gait stability and stair negotiation. Target Visit 8
--- NOTE | 2025-03-20 11:02 | PTOPEVAL1 ---
Assessment and note entered by Froylan Napier, PT Evaluation Information Assessment Status Evaluation Diagnosis CAMERON Knee OA ICD-10 Condition Codes (PT) Pain in right knee M25.561,Pain in left knee M25. 562 Subjective Information Patient presents with knee pain RIGHT>LEFT. The pain has been present for many months if not years . It is worse with activity and somewhat relieved by rest. Patient states that this affects activity activities of daily life including walking, working around the house etc. She has had injections in both knees with the most recent in December, with temporary relief and scheduled to for R TKA in April with Dr. Smith. Reported Pain Level Pain Score 3: Self Report Assessment PT Clinical Summary Patient presents to physical therapy with a primary issue of CAMERON knee pain R > L. Patient demonstrates quadricep and hip weakness, increased pain with activity, decreased mobility, gait deficit, and decreased flexibility that limit their ability to perform activities of daily living and functional movements. Patient will benefit from skilled physical therapy to address the above listed deficits and return to prior level of function. Home exercise program instructed and written handout provided, exercises tolerated well with no adverse effects to note post-session. Patient was educated on importance of adherence to home exercise program. Patient was also educated on anatomy, prognosis, home modalities, and plan of care. Plan of Care Interventions Electrical Stimulation,Gait Training,Hot Pack/Cold Pack,Neuro Re-education,Therapeutic Activities, Therapeutic Exercise,Ultrasound,Other PT Services Indicated Yes Treatment Frequency and 2x week 8 visits Duration These treatments will address the objective and functional deficits as defined above. The patient will be advanced safely and appropriately in order for the patient to progress towards his/her prior level of function. Additional exercises will be introduced and as well as a comprehensive home exercise program upon discharge, if needed, ?to ensure carryover of functional gains achieved in the clinic. This treatment plan has been reviewed and agreement upon by the patient.
--- NOTE | 2025-05-07 09:41 | PTOPDC ---
Assessment and note entered by Parag Barriga, PT Evaluation Information Assessment Status Discharge Diagnosis CAMERON Knee OA ICD-10 Condition Codes (PT) Pain in right knee M25.561,Pain in left knee M25. 562 Subjective Information Reports that she is doing well overall and feels prepared. She is psychologically struggling in preparation for surgery but feels she has everything in order. Reported Pain Level Pain Score 2: Self Report Assessment PT Clinical Summary Patient met all preoperative goals for therapy at this time and is suitable for discharge in preparation for TKA 05/20/25. No concerns at this time. Plan of Care PT Services Indicated Yes
== END 2025-05-07 15:44 | disposition home or self-care (01) ==
LOC: ANHGOSHPT 08:45
PROVIDERS: PCP Family Medicine; Visit Provider Orthopaedic Surgery
DX: M17.0 Bilateral primary osteoarthritis of knee (principal); M25.561 Pain in right knee; Z96.651 Presence of right artificial knee joint
CPT/HCPCS: 97110; 97161; 97530

== ENCOUNTER 2025-05-09 14:02 | Outpatient (CLI) | payer OTHER, SELFPAY ==
--- NOTE | 2025-05-09 15:04 | ECG_ITS ---
Test Date: 2025-05-09 15:25:56 Measurements Intervals [place] Rate: 65 P: 43 ID: [id number] QRS: 32 QRSD: 87 T: 37 QT: 406 QTc: 423 Interpretive Statements SINUS RHYTHM MINIMAL Q WAVES- HIGH LATERAL LEADS BASELINE ARTIFACT- I, II, AVR, AVL BORDERLINE ECG No previous ECG available for comparison Electronically Signed On 05-09-2025 16:26:58 CONSTRUCTION IRONWORKER by Schuyler Kimball D.O.
[2025-05-09 15:43] LABS: Hematocrit 39.8 % (37.0-47.0); Hemoglobin 12.9 g/dL (12.0-15.0); Immature Granulocyte Percent A 0.6 % (0-0.5); Lymphocytes Absolute Auto 2.30 K/mm3 (0.9-3.2); Mean Corpuscular HGB Conc 32.4 g/dl (32-36); Mean Corpuscular Hemoglobin 29.5 pg (26-34); Mean Corpuscular Volume 90.9 fl (80-100); Nucleated Red Blood Cells Absolute Auto 0.000 K/mm3 (0.0-0.012); Nucleated Red Blood Cells Perc 0.0 % (0.0-0.2); Platelet Count Result 245 k/mm3 (150-375); Red Blood Count 4.38 M/mm3 (4.2-5.4); White Blood Count 8.4 K/mm3 (4.5-10.0)
[2025-05-09 15:58] LABS: Albumin Level 4.5 g/dL (3.5-5.1); Estimated Glomerular Filt Rate > 60; Glucose 110 mg/dL (65-110)
[2025-05-09 16:11] LABS: Hemoglobin A1C 5.7 % (<5.7)
--- OUTSIDE RECORDS SUMMARY | 2025-05-09 16:54 | XMS_ITS | Clinical Summary ---
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
[2025-05-09 16:55] LABS: MRSA (PCR) NOT DETECTED (NOT DETECTE)
--- OUTSIDE RECORDS SUMMARY | 2025-05-09 16:55 | XMS_ITS | Clinical Summary ---
Author Organization [facility] Address [address] [place] [address] Care Team Providers Care Supervising Chef Name Role Phone Stephon Carpneter MD Primary Care Provider [phone] Allergies No known active allergies Medications FEROSUL [...] Comments Blood Pressure 128/80 05/20/2021 10:52 AM SEISMOGRAPH HELPER Pulse 79 05/20/2021 10:52 AM SEISMOGRAPH HELPER Temperature 36.7 C (98 F) 05/11/2021 9:03 PM SEISMOGRAPH HELPER Respiratory Rate 16 05/11/2021 11:20 PM SEISMOGRAPH HELPER Oxygen Saturation 97% 05/20/2021 10:52 AM SEISMOGRAPH HELPER Inhaled Oxygen Concentration - - Weight 99.3 kg (219 lb) 05/20/2021 10:52 AM SEISMOGRAPH HELPER Height 167.6 cm (5' 6) 05/20/2021 10:52 AM SEISMOGRAPH HELPER Body Mass Index 35.35 05/20/2021 10:52 AM SEISMOGRAPH HELPER Plan of Treatment Health Maintenance Due Date Last Done Comments Cervical Cancer Screening Pap Smear (Age 30 to 64) Every 3 Years 1967 Colorectal Cancer Screening Colonoscopy (10 Years) 1967 Annual Physical 10/02/1970 Hepatitis C 10/02/1985 DTaP, Tdap and Td Vaccines (1 - Tdap) 10/02/1986 Hepatitis B Vaccines (1 of 3 - 19+ 3-dose series) 10/02/1986 Cervical Cancer Screening Pap with HPV Testing (Age 30 to 64) Every 5 Years 10/02/1997 Cervical Cancer Screening with HPV 10/02/1997 Mammogram Screening 2007 Pneumococcal Vaccine: 50+ Years (1 of 1 - PCV) 10/02/2017 Zoster Vaccines (1 of 2) 10/02/2017 COVID-19 Vaccine (3 - season) 2025 04/04/2021, 07/02/2020 Influenza Adult (#1) 2025 02/14/2021, 03/10/2020, 03/15/2019, Additional history exists Hepatitis A Vaccines Aged Out No long er eligible based on patient's age to complete this topic Meningococcal B Vaccine Aged Out No l onger eligible based on patient's age to complete this topic Meningococcal Vaccine Aged Out No jie guero eligible based on patient's age to complete this topic RSV Immunizations Under 20 Months Aged Out No longer eligible based on patient's age to complete this topic Insurance Care Teams Supervising Chef Relationship Specialty Start Date End Date Stephon Carpenter MD [address] [place] [address] PCP - General FAMILY PRACTICE 05/12/21
== END 2025-05-09 14:03 | disposition home or self-care (01) ==
LOC: ANHSURGERY 14:05
PROVIDERS: PCP Family Medicine; Visit Provider Orthopaedic Surgery
DX: M17.11 Unilateral primary osteoarthritis, right knee (principal); Z01.818 Encounter for other preprocedural examination
CPT/HCPCS: 80307; 82040; 82565; 82947; 83036; 85025; 86850; 86900; 86901; 87641; 93005

== ENCOUNTER 2025-05-22 08:40 | Observation (INO) | payer OTHER, SELFPAY ==
[2025-05-09 14:13] VITALS: BMI 36.6
[2025-05-09 14:19] VITALS: BP 124/63; PULSE 74; RESP 16; TEMP 36.4; O2SAT 100
--- NOTE | 2025-05-09 14:40 | PC.NURSE ---
[facility] has started construction of its new state of the art ER which will open Spring 2026. With this, we anticipate parking may be a challenge for some our surgical patients and families. Parking spaces are limited but are available for all Surgical, obstetrics, and ER patients sharing this lot. If you arrive and find you are having a hard time finding a parking space, please note that we understand the challenges, please drive around the hospital and park near Hospital Entrance 1. When you enter this entrance, you can ask a volunteer to direct or take you back to the surgical waiting area to check in. We appreciate everyone?s understanding of these expected challenges while we build for your future. Report to the Outpatient Waiting Room, entrance under the green pavilion located off [address], at time __6:00AM___ on date ___05/20/25__. Planned Procedure Time: __7:30AM____.? Time changes happen often and if your time is changed the preop area will call you the afternoon before. - You and your visitor will be asked to self-screen and do not enter if you have any COVID symptoms. Please call surgeon if you need to reschedule. - A mask is optional within the hospital at this time. Patients may have clear liquids (water, carbonated beverages, clear teas, apple juice) until 3 hours prior to surgery (4:30AM) with a maximum of 20 ounces. - No food from midnight until time of surgery and no smoking, or chewing tobacco (or any form of nicotine). No chewing gum, candy or mints. Take only the following medications with a SIP of water on the morning of surgery: NONE DO NOT STOP ANY OF YOUR OTHER PRESCRIPTION MEDICATIONS PRIOR TO SURGERY EXCEPT THE FOLLOWING Hold all vitamins and supplements for 3 days per anesthesiologist. Medications to discontinue per physician NONE Date to take last dose Please no make-up, nail afghan, hairspray, perfume, deodorant, or body powder the day of surgery.? No jewelry (including any body piercings) or valuables the day of surgery, leave them at home.? Please take a shower or bath the night before, or the morning of, surgery with an antibacterial soap.? Wear comfortable, loose fitting clothing.? - Jewelry must be removed prior to entering the operating room.? Rings and piercings that are not removed may be cut off. - The hospital will not accept responsibility for valuables.? - Please leave all valuables, including medications, at home the day of surgery. If you are going home after surgery, a licensed delivery truck driver heavy must drive you home.? - NO public transportation without another adult if you receive anesthesia. - We recommend that an adult stay with you for 24 hours following discharge. - We also recommend that you do not drive, make important decision, drink alcoholic beverages, or take any drugs that were not prescribed by your health care provider for at least 24 hours after your discharge time. Follow any additional instructions given to you from your surgeon. Telephone instructions given to ___PATIENT and asked if any additional questions and then verbalized understanding. Patient advised to call surgeon office or pre surgery nurse liaison [phone] if any additional questions.
--- NOTE | 2025-05-16 07:00 | P.HP_ITS ---
H&P: HPI History of Present Illness Date/Time: 05/16/25 07:00 Chief Complaint: Patient is knee pain right. She has an arthritic knee with ccvm-or-opey changes. She has failed conservative treatment like to consider surgical intervention at this time. Surgical intervention would be a knee replacement. Review of Systems Musculoskeletal: Musculoskeletal: Reports myalgias, Reports arthralgias, Reports joint swelling and Reports stiffness Neurologic: Reports abnormal gait [facility] Past Medical History Medical History Abnormal fasting glucose Screening mammogram for breast cancer [facility] (current) use of non-steroidal anti-inflammatories (nsaid) Degenerative arthritis of knee, bilateral Pure hypercholesterolemia, unspecified Obesity Surgical History Surgical History Status post arthroscopy of right knee January 25, 2022 - Primarily synovectomy History of hysterectomy Family History Family History Sibling Diabetes mellitus Grandparent Lung cancer Social History Social History (Updated 05/10/25 @ 14:45 by Sonia Patrick MA) Smoking status: Never smoker Alcohol intake: current Drinks per week: 1 Alcohol use details: social Substance use: never Substance use type: does not use Lack of Transportation: No Lack of Food: Never True Current Housing: I Have Housing Concerned About Future Housing: No Difficulty Paying Gas/Electric Bills: No Difficulty Paying for Meds: No Currently Unemployed: No Education: High School Diploma/GED Difficulty w/ Childcare or Family Care: No Living arrangements: with family Additional living arrangements comments: [employer] Occupation/Education: occupation 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 She has varus deformity. She has grinding crepitus and pain with manipulation. She walks with an antalgic gait. Neurologically she is intact. Eyes: General: appearance normal, both eyes and all related structures Neck: Neck: supple Resp: Effort & Inspection: normal respiratory effort Cardio: Rate: regular rate Rhythm: regular rhythm Radiology Reports: Comments: Amando Smith M.D. XRay Report Ambulatory Signed Patient: Vikki Salazar Results of Diagnostic Exam (Interpreted Today) Order: 07/05/24 07:03 XR knee BI 3V Routine Interpretation: AP lateral skyline view both knees demonstrate moderately severe degenerative changes in the right knee moderate on the left. No fracture, lesions, or masses are appreciated. Documented By: Amando Smith MD 07/05/24 1328 Signed By: <Electronically signed by Amando Smith MD> 07/05/24 1328 Abdomen X-Ray 09/03/21 Knee X-Ray 07/05/24 Knee MRI 01/01/22 Pelvis X-Ray 07/29/22 Orthopedics Result Report 07/05/24 Lumbar Spine X-Ray 07/29/22 Assessment and Plan Assessment and plan (1) Degenerative arthritis of knee, bilateral: Qualifiers: Osteoarthritis type: unspecified Qualified Code(s): M17.0 - Bilateral primary osteoarthritis of knee Code(s): M17.0 - Bilateral primary osteoarthritis of knee Status: Chronic Assessment and Plan: Patient has arthritis right knee. She has failed conservative treatment I would like to consider knee replacement surgery. I have discussed this with her at length including the risks, benefits, limitations, and alternatives. She understands and agrees would like to proceed. Will proceed with right total knee arthroplasty per her request.
[2025-05-20] VITALS (14 sets, daily range): BP systolic 116–137; BP diastolic 56–83; PULSE 64–82; RESP 12–20; TEMP 36–36.5; O2SAT 93–100
--- NOTE | 2025-05-20 06:50 | WPDHPUPDATE1 ---
History and Physical Update Update Date/Time: 05/20/25 06:50 History and Physical has been reviewed, including an updated exam of the patient. There are NO changes in the patient's condition. Risks, benefits, and alternatives have been discussed and questions answered. Patient agrees to proceed with procedure.
[2025-05-20] MEDS: TRANEXAMIC ACID 1,000MG/ISO100 1,000 MG/100 ML BAG 200 MG IVPB (07:00)
[2025-05-20] MEDS: LACTATED RINGERS 1,000 ML 30 ML IV CONT ×2 (07:00→09:45)
[2025-05-20] MEDS: ACETAMINOPHEN 500 MG TABLET 1000 MG PO (07:00)
[2025-05-20] MEDS: VANCOMYCIN 1,500 MG/NS 500 ML 1,500 MG/500 ML BAG 250 MG IVPB (07:00)
--- NOTE | 2025-05-20 07:30 | WPDANESPNB ---
Anes - Peripheral Nerve Block Date/Time: 05/20/25 07:30 I have discussed with the patient/family/POA the placement of a peripheral nerve block for post-operative pain management, including associated risks, benefits, complications, and side effects. Alternative methods of post-operative analgesia were detailed. Questions were solicited and answers provided to the satisfaction of the patient/family/POA. Time-Out: A pre-procedural Time-Out was completed immediately before starting the procedure and confirmed: Patient Identification, Site, Procedure, Patient Position and the Availability of Requisite Equipment. Clinical Indications: Acute post-operative pain management requested by the operative surgeon. Nerve Block Insertion Note Anes-nerve block: adductor canal right Patient position: supine Skin prep: chlorhexidine Needle: 22 gauge, stimulating, insulated echogenic needle. Needle length: 80 mm Technique: ultrasound Injectate: other (Bupiv 0.5% 15 mls. ) Observations: tolerated well Complications: none Procedure start time:: 723 Procedure end time:: 728
[2025-05-20] MEDS: ceFAZolin 2 GM in SODIUM CHLORIDE 0.9% IV 50 ML 100 ML IVPB ×2 (07:33→17:11)
--- NOTE | 2025-05-20 07:58 | WPDANESEPPF ---
Anes - Initial Pre Proc Eval Procedure: Operation Date: 05/20/25 07:30 Proposed Procedures p Right Total Knee Arthroplasty - Amando Smith MD Date/Time: 05/20/25 07:58 Surgeon: Amando Smith MD Pre Op Diagnosis: OA right knee Patient Data Age: 59 Gender: F Height: 1.64 m Weight: 97.2 kg Last Vital Signs Temp 97.7 F 05/20/25 07:00 Pulse 78 05/20/25 07:00 Resp 16 05/20/25 07:00 BP 129/75 05/20/25 07:00 Pulse Ox 99 05/20/25 07:00 O2 Del Method Room Air 05/20/25 07:00 Allergies Allergy/AdvReac Type Severity Reaction Status Date / Time No Known Allergies Allergy Verified 05/20/25 07:47 Home Medications ?Medication ?Instructions ?Recorded ?Confirmed ?Type diphenhydramine HCl 25 mg capsule 50 mg PO HS 05/09/25 05/09/25 History (Benadryl) Patient hx anesthesia problems: none Family hx anesthesia problems: none Results Review: All pre-operative results and documents have been reviewed as part of the pre-operative evaluation. [facility] Past Medical History Medical History Abnormal fasting glucose Screening mammogram for breast cancer [facility] (current) use of non-steroidal anti-inflammatories (nsaid) Degenerative arthritis of knee, bilateral Pure hypercholesterolemia, unspecified Obesity Surgical History Surgical History Status post arthroscopy of right knee January 25, 2022 - Primarily synovectomy History of hysterectomy Family History Family History Sibling Diabetes mellitus Grandparent Lung cancer Social History Social History Smoking status: Never smoker Alcohol intake: current Drinks per week: 1 Alcohol use details: social Substance use: never Substance use type: does not use Lack of Transportation: No Lack of Food: Never True Current Housing: I Have Housing Concerned About Future Housing: No Difficulty Paying Gas/Electric Bills: No Difficulty Paying for Meds: No Currently Unemployed: No Education: High School Diploma/GED Difficulty w/ Childcare or Family Care: No Living arrangements: with family Additional living arrangements comments: [employer] Occupation/Education: occupation 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 [employer] Gender identity (if verbalized by the patient): Female Sexual Orientation (if Verbalized by the Patient): Straight or Heterosexual Spiritual care concerns: No Anes - Eval Final PreProcedure Day of Procedure 05/20/25 07:58 Patient weight: obese Lungs: normal air movement Airway: Mallampati scale class II Neurological: alert and oriented Last oral intake: >/= 8 hours ASA classification: II Emergent: no Anesthetic plan: proceed Anesthesia type and monitoring: general ETT and standard monitoring Results Review: All pre-operative results and documents have been reviewed as part of the pre-operative evaluation. BMI 36, very active without cp or sob. Pt walks at a [employer], up a large hill, no cp or sob. Informed Consent: The patient's anesthetic plan and its attendant risks and benefits were discussed with the patient/family/POA. Questions were solicited and answers provided to the satisfaction of the patient/family/POA.
[2025-05-20] MEDS: SODIUM CHLORIDE 0.9% IV 37.7 ML, MORPHINE SULFATE INJ (*CRX) 2 MG, ROPivacaine HCL 1% 2... INFILTRATE (08:06)
[2025-05-20] MEDS: TRANEXAMIC ACID 1,000 MG/10 ML AMPUL 1000 MG IV PUSH (09:04)
--- NOTE | 2025-05-20 09:17 | P.OP_ITS ---
Procedure Note - Detailed Date of Procedure 05/20/25 Pre-op Diagnosis Osteoarthritis right knee Post-op Diagnosis Same Procedure Performed RIGHT Total Knee arthroplasty Surgeon Amando Smith MD Tipple Repairer Minesh Driscoll Anesthesia General Indications Pain and Arthritis Description of Procedure The patient was brought to operating room #7. A general anesthetic was administered. Placed on the operating table and sterilely prepped and draped in usual manner. A longitudinal incision was made. Tourniquet inflated to 300 mmHg for a total of 66 minutes. Dissection was carried down to the fascia. Medial parapatellar incision was made and the patella subluxated laterally. Patella cut from 23 to 14 mm. The tibia was cut perpendicular to the long axis and femur cut in 5 degrees of valgus. The components were trialed and the knee was noted to be stable with excellent motion. The soft tissues balanced, hemostasis obtained. All [address], 71 tibia, 62.5 femur, 34 mm patella, and 10 mm poly. Motion was 0-125 degrees with good stability in both flexion and extension. The wound was closed with #2 Vicryl, 2- 0 Vicryl and mel. [employer] Estimated Blood Loss 200 Drains No Packing No Pathology None sent Complications No immediate complications Condition Stable Disposition PACU [facility] Billing Surgery - Charge Forward: Surgery Billing ([id number] TKA)
--- NOTE | 2025-05-20 10:59 | ADMGEN ---
This patient, Vikki Salazar, was admitted to 3 [facility] Surg Room 311-01. Patient/family oriented to hospital policies and general routines including ID bracelet, bed and alarms, visiting hours, pain management, procedures, bathroom and other care routines, personal items, smoking policy, room service/diet, and visiting hours. Information on how to activate the Rapid Response Team has been discussed. Patient/Family are encouraged to report perceived risks to care and to ask questions if they do not understand what they are told or what they should do.
[2025-05-20] MEDS: HYDROcodone/acetaminophen (*CRX) 7.5-325 MG TABLET 1 TAB PO ×3 (11:45→21:23)
[2025-05-20] MEDS: ONDANSETRON INJ 4 MG/2 ML VIAL IV PUSH ×2 (13:44→20:45)
--- NOTE | 2025-05-20 13:58 | P.CONIM_ITS ---
Assessment and Plan Assessment and plan (1) Pneumococcal arthritis, right knee: Code(s): M00.161 - Pneumococcal arthritis, right knee Status: Acute Assessment and Plan: Status post OR with Orthopedics on 05/20/2025 Pain management by Orthopedics Postop antibiotics PT OT eval and treat Xarelto Time Spent with Patient Time with patient: less than 45 minutes HPI Date of Consult Consult date: 05/20/25 Requesting Physician: Amando Smith MD Primary Care Provider: Stephon Carpenter MD Consult Narrative Reason for consult: Medical management Narrative: Vikki Salazar is a 59 year old female past medical history of bilateral knee arthritis and hyperlipidemia presents the hospital for a planned total right knee arthroplasty by Orthopedics. Patient seen after OR. Patient resting comfortably. Patient states arm she had some postop nausea but no vomiting. She is able to eat and drink. Has no complaints at this time. Review of Systems Review of Systems: 12 systems were reviewed and are negativ e except for as per HPI. [facility] Past Medical History Medical History Abnormal fasting glucose [facility] ([facility]) use of non-steroidal anti-inflammatories (nsaid) Degenerative arthritis of knee, bilateral Pure hypercholesterolemia, unspecified Obesity Surgical History Surgical History Status post arthroscopy of right knee January 25, 2022 - Primarily synovectomy History of hysterectomy Family History Family History Sibling Diabetes mellitus Grandparent Lung cancer Social History Social History Smoking status: Never smoker Alcohol intake: current Drinks per week: 1 Alcohol use details: social Substance use: never Substance use type: does not use Lack of Transportation: No Lack of Food: Never True Current Housing: I Have Housing Concerned About Future Housing: No Difficulty Paying Gas/Electric Bills: No Difficulty Paying for Meds: No Currently Unemployed: No Education: High School Diploma/GED Difficulty w/ Childcare or Family Care: No Living arrangements: with family Additional living arrangements comments: [employer] Occupation/Education: occupation 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- [employer] Gender identity (if verbalized by the patient): Female Sexual Orientation (if Verbalized by the Patient): Straight or Heterosexual Spiritual care concerns: No Meds Home Medications and Allergies Home Medications ?Medication ?Instructions ?Recorded ?Confirmed ?Type diphenhydramine HCl 25 mg capsule 50 mg PO HS 05/09/25 05/09/25 History (Benadryl) Allergies Allergy/AdvReac Type Severity Reaction Status Date / Time No Known Allergies Allergy Verified 05/20/25 11:03 Vital Signs Vital Signs - 24 hr 05/20/25 07:00 05/20/25 09:45 05/20/25 10:00 Temperature 97.7 F 97.6 F Pulse Rate 78 82 75 Respiratory Rate 16 12 18 Blood Pressure 129/75 137/65 130/73 Pulse Oximetry 99 100 93 Oxygen Delivery Room Air Simple Face Mask Room Air Oxygen Flow Rate 8 05/20/25 10:15 05/20/25 10:30 05/20/25 10:45 Temperature Pulse Rate 72 71 68 Respiratory Rate 18 16 20 Blood Pressure 125/74 128/76 117/56 L Pulse Oximetry 93 93 96 Oxygen Delivery Room Air Room Air Room Air Oxygen Flow Rate 05/20/25 10:53 05/20/25 11:08 05/20/25 11:10 Temperature 96.9 F L 96.9 F L Pulse Rate 69 66 68 Respiratory Rate 18 17 20 Blood Pressure 124/70 124/72 Pulse Oximetry 95 98 96 Oxygen Delivery Room Air Oxygen Flow Rate 05/20/25 11:38 05/20/25 12:38 05/20/25 13:08 Temperature 97.0 F L 97.1 F L Pulse Rate 69 66 Respiratory Rate 18 19 Blood Pressure 120/68 116/66 Pulse Oximetry 95 97 Oxygen Delivery Room Air Oxygen Flow Rate 05/20/25 13:43 Temperature Pulse Rate Respiratory Rate Blood Pressure Pulse Oximetry Oxygen Delivery Room Air Oxygen Flow Rate Exam Narrative: General: well appearing, appears stated age. HEENT: normocephalic, atraumatic. Mucous membranes moist. EOMI, PERRLA, bilateral sclera anicteric, no conjunctival injection. Neck supple without JVD, lymphadenopathy, or bruit. Respiratory: clear bilaterally. No rales/rhonic/wheezes. Cardiovascular: Regular rate and rhythm, normal S1-S2. No murmurs, rubs, or clicks. PMI is nondisplaced, capillary refill less than 3 second. Abdomen: Soft, round, no pulsatile masses, nondistended and nontender. No rebound, no guarding. Bowel sounds present to all four quadrants. No high pitch or tinkling sounds, resonant to percussion. Extremities: No cyanosis, clubbing, or edema present. Pulses are palpable 2/2. Right lower extremity with Zachary wrap Neuro: Alert and orientated x 4. PERRLA. Cranial nerves 2-12 intact without focal deficit. Skin: Warm, dry, and intact, without rash, erythema, or lesion. Psych: pleasant, cooperative, normal speech, normal affect, no hallucinations, no dysarthia Hospitalist [facility] Advance Care Plan I have confirmed that the patient's Advanced Care Plan is present, code status is documented, or surrogate decision maker is listed in patient medical record.: Yes Medication Reconciliation I have utilized all available resources to obtain, update and review the patients current medications (includes all prescriptions, OTC, herbals, cannabis, and nutritional supplements).: Yes
[2025-05-20] MEDS: SENNA/DOCUSATE SODIUM TABLET 2 TAB PO (17:10)
[2025-05-20] MEDS: RIVAROXABAN 10 MG TABLET PO (17:11)
[2025-05-20] MEDS: CELECOXIB 200 MG CAPSULE PO (17:11)
[2025-05-21] MEDS: ceFAZolin 2 GM in SODIUM CHLORIDE 0.9% IV 50 ML 100 ML IVPB ×2 (00:20→08:56)
[2025-05-21] MEDS: HYDROcodone/acetaminophen (*CRX) 7.5-325 MG TABLET 1 TAB PO ×2 (03:53→08:56)
[2025-05-21 04:45] VITALS: BP 125/66; PULSE 64; RESP 20; TEMP 36.3; O2SAT 99
[2025-05-21 05:55] LABS: Hematocrit 33.3 % (37.0-47.0); Hemoglobin 10.8 g/dL (12.0-15.0); Immature Granulocyte Percent A 0.4 % (0-0.5); Lymphocytes Absolute Auto 1.47 K/mm3 (0.9-3.2); Mean Corpuscular HGB Conc 32.4 g/dl (32-36); Mean Corpuscular Hemoglobin 29.7 pg (26-34); Mean Corpuscular Volume 91.5 fl (80-100); Nucleated Red Blood Cells Absolute Auto 0.000 K/mm3 (0.0-0.012); Nucleated Red Blood Cells Perc 0.0 % (0.0-0.2); Platelet Count Result 151 k/mm3 (150-375); Red Blood Count 3.64 M/mm3 (4.2-5.4); White Blood Count 8.2 K/mm3 (4.5-10.0)
[2025-05-21 06:14] LABS: Anion Gap 5 mmol/L (4-12); Blood Urea Nitrogen 11 mg/dL (7-17); Calcium 8.5 mg/dL (8.4-10.2); Carbon Dioxide 27 mmol/L (22-30); Chloride 103 mmol/L (98-107); Estimated CRCL calculation 88 ml/min; Estimated Glomerular Filt Rate > 60; Glucose 113 mg/dL (65-110); Potassium 3.8 mmol/L (3.4-5.0); Sodium 135 mmol/L (137-145)
[2025-05-21] MEDS: ONDANSETRON INJ 4 MG/2 ML VIAL IV PUSH ×2 (07:56→16:47)
[2025-05-21 08:11] VITALS: BP 142/81; PULSE 63; RESP 18; TEMP 35.8; O2SAT 100
[2025-05-21 08:13] VITALS: TEMP 36.1
[2025-05-21] MEDS: SENNA/DOCUSATE SODIUM TABLET 2 TAB PO ×2 (08:57→16:44)
[2025-05-21] MEDS: CELECOXIB 200 MG CAPSULE PO ×2 (08:57→16:44)
--- NOTE | 2025-05-21 09:34 | PCPTNOTE ---
Attempted to see patient for PT, however patient was nauseous and feels she is unable to work with PT.
[2025-05-21] MEDS: PROMETHAZINE HCL 25 MG/ML AMPUL IM ×2 (11:39→20:46)
[2025-05-21] MEDS: HYDROmorphone HCL INJ (*CRX) 1 MG/ML SYR IV PUSH (11:46)
[2025-05-21] MEDS: LACTATED RINGERS 1,000 ML 100 ML (11:46)
--- NOTE | 2025-05-21 11:47 | PM.IMCN2 ---
Assessment and Plan Assessment and plan (1) Pneumococcal arthritis, right knee: Code(s): M00.161 - Pneumococcal arthritis, right knee Status: Acute Assessment and Plan: Status post OR with Orthopedics on 05/20/2025 Pain & nausea management by Orthopedics Postop antibiotics PT OT eval and treat Xarelto Pt reports a decrease in PO intake and urination today, will start LR IVF Plan Pending nausea and pain control Time Spent with Patient Time with patient: less than 45 minutes HPI Date of Consult Consult date: 05/21/25 Requesting Physician: Amando Smith MD Primary Care Provider: Stephon Carpenter MD Consult Narrative Narrative: Vikki Salazar is a 59 year old female who underwent a total right knee arthroplasty by Orthopedics on 05/20. Pt c/o nausea and 7/10 pain today. Pt also reports that she has not urinated hardly anything due to her decreased intake. Review of Systems Review of Systems: 12 systems were reviewed and are negative except for as per HPI. [facility] Past Medical History Medical History Abnormal fasting glucose Screening mammogram for breast cancer [facility] (current) use of non-steroidal anti-inflammatories (nsaid) Degenerative arthritis of knee, bilateral Pure hypercholesterolemia, unspecified Obesity Surgical History Surgical History Status post arthroscopy of right knee January 25, 2022 - Primarily synovectomy History of hysterectomy Family History Family History Sibling Diabetes mellitus Grandparent Lung cancer Social History Social History Smoking status: Never smoker Alcohol intake: current Drinks per week: 1 Alcohol use details: social Substance use: never Substance use type: does not use Lack of Transportation: No Lack of Food: Never True Current Housing: I Have Housing Concerned About Future Housing: No Difficulty Paying Gas/Electric Bills: No Difficulty Paying for Meds: No Currently Unemployed: No Education: High School Diploma/GED Difficulty w/ Childcare or Family Care: No Living arrangements: with family Additional living arrangements comments: [employer] Occupation/Education: occupation 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 [employer] Gender identity (if verbalized by the patient): Female Sexual Orientation (if Verbalized by the Patient): Straight or Heterosexual Spiritual care concerns: No Meds Home Medications and Allergies Home Medications ?Medication ?Instructions ?Recorded ?Confirmed ?Type diphenhydramine HCl 25 mg capsule 50 mg PO HS 05/09/25 05/09/25 History (Benadryl) doxycycline hyclate 100 mg tablet 100 mg PO BID #20 tabs 05/21/25 Rx hydrocodone 7.5 mg-acetaminophen 1 tablet PO Q6H PRN pain #40 tabs 05/21/25 Rx 325 mg tablet rivaroxaban 10 mg tablet (Xarelto) 10 mg PO DAILY #10 tabs 05/21/25 Rx Allergies Allergy/AdvReac Type Severity Reaction Status Date / Time No Known Allergies Allergy Verified 05/20/25 11:03 Vital Signs Vital Signs - 24 hr 05/20/25 12:38 05/20/25 13:08 05/20/25 13:43 Temperature 97.1 F L Pulse Rate 66 Respiratory Rate 19 Blood Pressure 116/66 Pulse Oximetry 97 Oxygen Delivery Room Air Room Air 05/20/25 16:26 05/20/25 20:05 05/20/25 21:15 Temperature 97.4 F L 97.1 F L Pulse Rate 68 64 Respiratory Rate 17 20 Blood Pressure 119/79 134/83 Pulse Oximetry 99 100 Oxygen Delivery Room Air 05/20/25 23:55 05/21/25 04:45 05/21/25 08:00 Temperature 96.8 F L 97.3 F L Pulse Rate 70 64 Respiratory Rate 18 20 Blood Pressure 137/78 125/66 Pulse Oximetry 100 99 Oxygen Delivery Room Air 05/21/25 08:11 05/21/25 08:13 Temperature 96.4 F L 97.0 F L Pulse Rate 63 Respiratory Rate 18 Blood Pressure 142/81 H Pulse Oximetry 100 Oxygen Delivery Exam Narrative: General: well appearing, appears stated age. Crying due to pain upon exam. HEENT: normocephalic, atraumatic. Mucous membranes moist. EOMI, PERRLA, bilateral sclera anicteric, no conjunctival injection. Neck supple without JVD, lymphadenopathy, or bruit. Respiratory: clear bilaterally. No rales/rhonic/wheezes. Cardiovascular: Regular rate and rhythm, normal S1-S2. No murmurs, rubs, or clicks. PMI is nondisplaced, capillary refill less than 3 second. Abdomen: Soft, round, no pulsatile masses, nondistended and nontender. No rebound, no guarding. Bowel sounds present to all four quadrants. No high pitch or tinkling sounds, resonant to percussion. Extremities: No cyanosis, clubbing, or edema present. Pulses are palpable 2/2. Right lower extremity with post op surgical dressing CDI Neuro: Alert and orientated x 4. PERRLA. Cranial nerves 2-12 intact without focal deficit. Skin: Warm, dry, and intact, without rash, erythema, or lesion. Psych: pleasant, cooperative, normal speech, normal affect, no hallucinations, no dysarthia Results Labs 05/21/25 05:42 05/21/25 05:42 Labs: Short CBC 05/21/25 Range/Units 05:42 WBC 8.2 (4.5-10.0) K/mm3 Hgb 10.8 L (12.0-15.0) g/dL Hct 33.3 L (37.0-47.0) % Plt Count 151 (150-375) k/mm3 BMP 05/21/25 05:42 Sodium 135 L Potassium 3.8 Chloride 103 Carbon Dioxide 27 BUN 11 Creatinine 0.69 L Glucose 113 H Calcium 8.5 Quality VTE Prophylaxis VTE prophylaxis: pharmacologic ordered Hospitalist [facility] Advance Care Plan I have confirmed that the patient's Advanced Care Plan is present, code status is documented, or surrogate decision maker is listed in patient medical record.: Yes Medication Reconciliation I have utilized all available resources to obtain, update and review the patients current medications (includes all prescriptions, OTC, herbals, cannabis, and nutritional supplements).: Yes
[2025-05-21 12:28] VITALS: BP 143/72; PULSE 68; RESP 17; TEMP 36.6; O2SAT 96
[2025-05-21 16:00] VITALS: BP 133/60; PULSE 62; RESP 18; TEMP 36.6; O2SAT 100
[2025-05-21] MEDS: RIVAROXABAN 10 MG TABLET PO (16:44)
[2025-05-21 19:59] VITALS: BP 104/54; PULSE 71; RESP 18; TEMP 36.2; O2SAT 100
[2025-05-21] MEDS: HYDROcodone/acetaminophen (*CRX) 5-325 MG TABLET 1 TAB PO (20:45)
[2025-05-21] MEDS: LACTATED RINGERS 1,000 ML 100 ML IV CONT (23:12)
--- NOTE | ~2025-05-22 | XR_ITS ---
EXAMINATION: [id number] DATE: 05/20/2025 10:09 INDICATION: Postoperative evaluation following right total knee arthroplasty. TECHNIQUE: Anteroposterior and lateral views of the right knee were obtained. COMPARISON: None. FINDINGS: Right total knee arthroplasty with patellar resurfacing appears well seated and in near anatomic alignment. No fractures identified. Expected postoperative subcutaneous, intramedullary and intra-articular gas. IMPRESSION: 1. Right total knee arthroplasty, negative for postoperative purposes. Reviewed, dictated and finalized at location A. [employer]IST
[2025-05-22] MEDS: HYDROcodone/acetaminophen (*CRX) 7.5-325 MG TABLET 1 TAB PO (03:05)
[2025-05-22 06:04] LABS: Hematocrit 30.1 % (37.0-47.0); Hemoglobin 9.6 g/dL (12.0-15.0); Immature Granulocyte Percent A 0.5 % (0-0.5); Lymphocytes Absolute Auto 1.10 K/mm3 (0.9-3.2); Mean Corpuscular HGB Conc 31.9 g/dl (32-36); Mean Corpuscular Hemoglobin 29.6 pg (26-34); Mean Corpuscular Volume 92.9 fl (80-100); Nucleated Red Blood Cells Absolute Auto 0.000 K/mm3 (0.0-0.012); Nucleated Red Blood Cells Perc 0.0 % (0.0-0.2); Platelet Count Result 144 k/mm3 (150-375); Red Blood Count 3.24 M/mm3 (4.2-5.4); White Blood Count 6.6 K/mm3 (4.5-10.0)
[2025-05-22 06:30] LABS: Alanine Aminotransferase 82 U/L (6-35); Albumin Level 3.3 g/dL (3.5-5.1); Alkaline Phosphatase 76 U/L (38-126); Anion Gap 4 mmol/L (4-12); Aspartate Amino Transferase 74 U/L (14-36); Bilirubin,Total 0.3 mg/dL (0.2-1.3); Blood Urea Nitrogen 9 mg/dL (7-17); Calcium 8.2 mg/dL (8.4-10.2); Carbon Dioxide 28 mmol/L (22-30); Chloride 103 mmol/L (98-107); Estimated CRCL calculation 90 ml/min; Estimated Glomerular Filt Rate > 60; Glucose 123 mg/dL (65-110); Potassium 3.9 mmol/L (3.4-5.0); Sodium 135 mmol/L (137-145); Total Protein 6.1 g/dL (6.3-8.2)
--- NOTE | 2025-05-22 06:44 | WPDHPUPDATE1 ---
History and Physical Update Update Date/Time: 05/22/25 06:44 History and Physical has been reviewed, including an updated exam of the patient. There are NO changes in the patient's condition. Risks, benefits, and alternatives have been discussed and questions answered. Patient agrees to proceed with procedure.
[2025-05-22] MEDS: SENNA/DOCUSATE SODIUM TABLET 2 TAB PO (07:59)
[2025-05-22] MEDS: CELECOXIB 200 MG CAPSULE PO (07:59)
[2025-05-22] MEDS: HYDROcodone/acetaminophen (*CRX) 5-325 MG TABLET 1 TAB PO (08:03)
--- NOTE | 2025-05-22 09:24 | P.DS_ITS ---
DS: Admitting Diagnosis Discharge Date 05/21/2025 Admitting Diagnosis Osteoarthritis right knee DS: Discharge Diagnosis Discharge Diagnosis (1) History of knee replacement procedure of right knee: Code(s): Z96.651 - Presence of right artificial knee joint Status: Acute Assessment and Plan: Patient underwent total knee arthroplasty for osteoarthritis of the right knee. She progressed slowly and had nausea and vomiting and was not taking fluids. She had the IV for an extra day and was kept overnight for hydration. Will dismissed today. DS: Summary Hospital Course Hospital Course: Patient underwent total knee arthroplasty for osteoarthritis of the right knee. She progressed slowly and had nausea and vomiting and was not taking fluids. She had the IV for an extra day and was kept overnight for hydration. Will dismissed today. Status at Discharge Functional status at discharge: uses cane/walker Time Spent with Patient Time attestation: Total time spent providing and/or coordinating discharge services: Exam Narrative: Dressing intact. Wiggles toes. Walking with a walker. DS: Data Data Completed and Pending Labs on day of discharge: Labs from last 24 hours 05/22/25 05:40 WBC 6.6 RBC 3.24 L Hgb 9.6 L Hct 30.1 L MCV 92.9 MCH 29.6 MCHC 31.9 L RDW 13.9 Plt Count 144 L MPV 9.6 Immature Gran % (Auto) 0.5 Neut % (Auto) 75.3 H Lymph % (Auto) 16.7 L [place] % (Auto) 7.0 Eos % (Auto) 0.2 Baso % (Auto) 0.3 Lymph # (Auto) 1.10 [place] # (Auto) 0.5 Eos # (Auto) 0.0 Baso # (Auto) 0.0 Abs Immat Gran (auto) 0.03 Absolute Neuts (auto) 5.0 Absolute Nucleated RBC 0.000 Nucleated RBC % 0.0 Sodium 135 L Potassium 3.9 Chloride 103 Carbon Dioxide 28 Anion Gap 4 BUN 9 Creatinine 0.68 L Estim Creat Clear Calc 90 Estimated GFR > 60 Glucose 123 H Calcium 8.2 L Total Bilirubin 0.3 AST 74 H ALT 82 H Alkaline Phosphatase 76 Total Protein 6.1 L Albumin 3.3 L Discharge Plan Discharge Attending physician on discharge: Amando Smith Consulting providers: Sarah Omer; Gudelia Carmen Discharging Clinician: Amando Smith Patient Disposition: Home Activity: unlimited Diet: as tolerated Discharge Instructions: Dr. Amando Smith M.D [address] [place], [place] [id number] POST-OPERATIVE DISCHARGE INSTRUCTIONS TOTAL KNEE ARTHROPLASTY 1. When resting, do not rest in the chair.When resting, lie on your back, with back flat on the couch or bed, with leg elevated above heart to minimize swelling. You may put a pillow under your head. . Significant swelling could indicate a blood clot and if this occurs call the office (or go to the ER) to have a venous ultrasound. Therefore, do not rest in a chair. 2. At least five times a day spend several minutes stretching your knee into flexion while sitting in the chair and also stretching your knee out straight The abilities to bend your knee fulling and straighten your knee fully are two m ost important knee functions to focus on during your recovery. 3. It is ok to sit in chair to eat, use the toilet and receive a guest and to do your stretching exercises, but, sitting in a chair will cause your leg to swell. Therefore, avoid additional time sitting in the chair. and don't rest in the chair. 4. Wound Care: Nursing will give you an additional Mepilex dressing at the time of discharge. Patient to remove the dressing and apply a new Mepilex dressing at home 7 days after surgery and leave the dressing on until seen in office. 5. May shower with a Mepilex dressing in place.The water will run off the dressing. 6. Unless you are told otherwise, you may put full weight on your operated leg. Use a walker for balance and practice walking as normally as you can, ideally for a few minutes every hour while you are awake. 7. I would advise against putting ice packs on your knee incision. Ice constricts blood flow which can impar healing of the knee incision. IMPORTANT: Remember not to sit in the chair for more than 30 minutes at a time. As a rule, during the first 14 days after surgery, only sit in the chair to work on the chair knee bending stretch exercise, for meals or for use of the restroom. Sitting in the chair promotes significant swelling in the knee and leg which will make your knee stiff and more painful and which simulates having a blood clot in the veins of the leg. If this type of significant diffuse swelling occurs, an ultrasound at the hospital will be necessary to rule out a blood clot. Be up walking around with the walker for a few minutes every hour while awake and then rest laying on your back on the couch or in bed with your leg elevated on cushions or pillows. Do not rest in the chair. Patient Instructions: Rivaroxaban (By mouth) Patient Language: Vietnamese Stand Alone Forms: General Discharge Instructions Follow-up/Referrals: Amando Smith MD [Physician, Orthopedics] Discharge Medications: New doxycycline hyclate 100 mg tablet 100 mg PO BID Qty: 20 0RF hydrocodone-acetaminophen 7.5-325 mg tablet 1 tablet PO Q6H PRN (Reason: pain) Qty: 40 0RF Xarelto 10 mg tablet 10 mg PO DAILY Qty: 10 0RF Rx Instructions: 10 days then switch to aspirin Continued diphenhydramine HCl [Benadryl] 25 mg capsule 50 mg PO HS Date of admission: 05/22/25 08:40 Primary Care Provider: Stephon Carpenter Admitting Provider: Amando Smith Attending physician on admission: Amando Smith Condition: Improved
--- NOTE | 2025-05-22 09:28 | PM.PNORT ---
Progress Note: A&P Assessment and Plan (1) History of knee replacement procedure of right knee: Code(s): Z96.651 - Presence of right artificial knee joint Status: Acute Assessment and Plan: Patient underwent total knee arthroplasty for osteoarthritis on the right. Her stay was complicated by nausea and vomiting and dehydration. She was on IV fluids for an extra day because of this. She is doing better at this time he can be dismissed home. Follow up 10 to 14 days for sutures out. Dismissal medications include Spring Xarelto and doxycycline. Subjective Subjective Date/Time Seen: 05/22/25 09:28 Interval history: Osteoarthritis right knee status post total knee arthroplasty Review of Systems Musculoskeletal: Musculoskeletal: Reports myalgias, Reports arthralgias, Reports joint swelling and Reports stiffness Neurologic: Reports abnormal gait Exam Narrative: Dressing intact. Neurologically she wiggles her toes. She has had line ambulate with a walker. Pain is tolerable. Objective Data Vital Signs Vital Signs: Vital Signs - 24 hr 05/21/25 12:28 05/21/25 16:00 05/21/25 19:59 Temperature 97.9 F 97.9 F 97.1 F L Pulse Rate 68 62 71 Respiratory Rate 17 18 18 Blood Pressure 143/72 H 133/60 104/54 L Pulse Oximetry 96 100 100 Oxygen Delivery 05/21/25 20:00 Temperature Pulse Rate Respiratory Rate Blood Pressure Pulse Oximetry Oxygen Delivery Room Air Intake/Output Intake/Output: Intake & Output 05/19/25 05/20/25 05/21/25 05/22/25 23:59 23:59 23:59 23:59 Intake Total 988 2380 180 Balance 988 2380 180 Meds/Results Medications: Active Medications Generic Name Dose Route Start Last Admin Trade Name Freq PRN Reason Stop Dose Admin Hydrocodone Bitart/Acetaminophen 1 tab 05/20/25 10:53 05/22/25 08:03 Hydrocodone/Acetaminophen (*Crx) 5-325 Mg Tablet PO 1 tab Q4H PRN Administration Pain Rated 4-6 Hydrocodone Bitart/Acetaminophen 1 tab 05/20/25 10:53 05/22/25 03:05 Hydrocodone/Acetaminophen (*Crx) 7.5-325 Mg Tablet PO 1 tab Q4H PRN Administration Pain Rated 7-10 Celecoxib 200 mg 05/20/25 17:00 05/22/25 07:59 Celecoxib 200 Mg Capsule PO 200 mg BIDWM NOHEMY Administration Diphenhydramine HCl 25 mg 05/20/25 10:53 Diphenhydramine Hcl Inj 50 Mg/Ml Vial IV PUSH Q6H PRN Itching Hydromorphone HCl 1 mg 05/20/25 10:53 05/21/25 11:46 Hydromorphone Hcl Inj (*Crx) 1 Mg/Ml Syr IV PUSH 1 mg Q2H PRN Administration Breakthrough Pain Rated 7-10 or NPO Hydromorphone HCl 0.5 mg 05/20/25 10:53 Hydromorphone Hcl Inj (*Crx) 1 Mg/Ml Syr IV PUSH Q2H PRN Breakthrough Pain Rated 4-6 or NPO Ibuprofen 800 mg in 200 mls @ 400 mls/hr 05/20/25 10:53 Caldolor 800 Mg/200 Ml IVPB Q6H PRN Breakthrough Pain Rated 1-3 or NPO Lactated Ringer's 1,000 mls @ 100 mls/hr 05/21/25 11:50 05/21/25 23:12 Lr - Lactated Ringers Iv IV CONT 100 mls/hr .Q10H NOHEMY Administration Naloxone HCl 0.1 mg 05/20/25 10:53 Naloxone Hcl 0.4 Mg/Ml Vial IV PUSH Q2M PRN Opiate Reversal Ondansetron HCl 4 mg 05/20/25 10:53 05/21/25 16:47 Ondansetron Inj 4 Mg/2 Ml Vial IV PUSH 4 mg Q4H PRN Administration Nausea And Vomiting Polyethylene Glycol 17 gm 05/21/25 09:00 05/22/25 08:00 Polyethylene Glycol 3350 17 Gm Powd.Pack PO Not Given QAM [facility] Promethazine HCl 25 mg 05/21/25 16:05 05/21/25 20:46 Promethazine Hcl 25 Mg/Ml Ampul IM 25 mg Q6H PRN Administration Nausea And Vomiting Rivaroxaban 10 mg 05/20/25 17:00 05/21/25 16:44 Rivaroxaban 10 Mg Tablet PO 05/31/25 17:01 10 mg DAILY@17 NOHEMY Administration Senna/Docusate Sodium 2 tab 05/20/25 17:00 05/22/25 07:59 Senna/Docusate Sodium Tablet PO 2 tab BID NOHEMY Administration Tramadol HCl 50 mg 05/20/25 10:53 Tramadol Hcl (*Crx) 50 Mg Tablet PO Q4H PRN Pain Rated 1-3 Wound Care/Dressing Products 1 each 05/21/25 09:00 05/22/25 08:11 Calcium-Sodium Alginate Bandage TOPICAL Not Given DAILY [facility] Radiology Results: ITS Impressions Knee X-Ray 05/20/25 13:04 IMPRESSION: 1. Right total knee arthroplasty, negative for postoperative purposes. Labs Labs: Laboratory Results - last 24 hr 05/22/25 05:40 WBC 6.6 RBC 3.24 L Hgb 9.6 L Hct 30.1 L MCV 92.9 MCH 29.6 MCHC 31.9 L RDW 13.9 Plt Count 144 L MPV 9.6 Immature Gran % (Auto) 0.5 Neut % (Auto) 75.3 H Lymph % (Auto) 16.7 L [place] % (Auto) 7.0 Eos % (Auto) 0.2 Baso % (Auto) 0.3 Lymph # (Auto) 1.10 [place] # (Auto) 0.5 Eos # (Auto) 0.0 Baso # (Auto) 0.0 Abs Immat Gran (auto) 0.03 Absolute Neuts (auto) 5.0 Absolute Nucleated RBC 0.000 Nucleated RBC % 0.0 Sodium 135 L Potassium 3.9 Chloride 103 Carbon Dioxide 28 Anion Gap 4 BUN 9 Creatinine 0.68 L Estim Creat Clear Calc 90 Estimated GFR > 60 Glucose 123 H Calcium 8.2 L Total Bilirubin 0.3 AST 74 H ALT 82 H Alkaline Phosphatase 76 Total Protein 6.1 L Albumin 3.3 L
== END 2025-05-22 10:35 | disposition home or self-care (01) ==
LOC: ANHSURGERY 08:41 → ANH3MEDSUR 08:41
PROVIDERS: Admitting Provider Orthopaedic Surgery; PCP Family Medicine; Visit Provider Orthopaedic Surgery
PROC: (CPT 27447; principal; 2025-05-20 07:30)
DX: M17.0 Bilateral primary osteoarthritis of knee (principal); G89.18 Other acute postprocedural pain; R11.2 Nausea with vomiting, unspecified; E78.00 Pure hypercholesterolemia, unspecified; Z79.1 Long term (current) use of non-steroidal anti-inflammatories (NSAID); Z98.890 Other specified postprocedural states; Z90.710 Acquired absence of both cervix and uterus
CPT/HCPCS: 27447; 64447; 36415; 73560; 80048; 80053; 85025; 97110; 97116; 97161; 97165; 97530; 97535; J0690; A9270; C1713; C1776; J0166; J1100; J1171; J1885; J2003; J2250; J2270; J2405; J2550; J2704; J2795; J3010; J3290; J3373; J7120

== ENCOUNTER 2025-05-26 03:45 | Emergency (ER) | payer OTHER, SELFPAY ==
--- NOTE | ~2025-05-26 | XR_ITS ---
Examination: XR chest 1V portable Clinical History: cough Comparison: None Technique: Portable AP Findings: Heart size normal. Lungs clear. No acute bony abnormality. IMPRESSION: 1. No acute cardiopulmonary findings given portable technique. Reviewed, dictated and finalized at location R. [employer]
[2025-05-26 03:46] VITALS: BP 139/70; PULSE 95; RESP 18; TEMP 36.7; O2SAT 100
[2025-05-26 04:06] VITALS: BP 143/88; PULSE 82; RESP 18; O2SAT 97
--- OUTSIDE RECORDS SUMMARY | 2025-05-26 04:09 | XMS_ITS | Clinical Summary ---
Author Organization [facility] Address [address] [place] [address] Care Team Providers Care Head Sulfide Operator Name Role Phone Stephon Carpenter MD Primary Care Provider [phone] Allergies No known active allergies Medications FEROSUL [...] Comments Blood Pressure 128/80 05/20/2021 10:52 AM POST MANAGER Pulse 79 05/20/2021 10:52 AM POST MANAGER Temperature 36.7 C (98 F) 05/11/2021 9:03 PM POST MANAGER Respiratory Rate 16 05/11/2021 11:20 PM POST MANAGER Oxygen Saturation 97% 05/20/2021 10:52 AM POST MANAGER Inhaled Oxygen Concentration - - Weight 99.3 kg (219 lb) 05/20/2021 10:52 AM POST MANAGER Height 167.6 cm (5' 6) 05/20/2021 10:52 AM POST MANAGER Body Mass Index 35.35 05/20/2021 10:52 AM POST MANAGER Plan of Treatment Health Maintenance Due Date [...] to complete this topic Insurance Care Teams Head Sulfide Operator Relationship Specialty Start Date End Date Stephon Carpenter MD [address] [place] [address] PCP - General FAMILY PRACTICE 05/12/21
--- OUTSIDE RECORDS SUMMARY | 2025-05-26 04:09 | XMS_ITS | Clinical Summary ---
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
[2025-05-26 04:17] LABS: Hematocrit 34.8 % (37.0-47.0); Hemoglobin 11.7 g/dL (12.0-15.0); Immature Granulocyte Percent A 1.2 % (0-0.5); Lymphocytes Absolute Auto 1.50 K/mm3 (0.9-3.2); Mean Corpuscular HGB Conc 33.6 g/dl (32-36); Mean Corpuscular Hemoglobin 29.8 pg (26-34); Mean Corpuscular Volume 88.5 fl (80-100); Nucleated Red Blood Cells Absolute Auto 0.000 K/mm3 (0.0-0.012); Nucleated Red Blood Cells Perc 0.0 % (0.0-0.2); Platelet Count Result 294 k/mm3 (150-375); Red Blood Count 3.93 M/mm3 (4.2-5.4); White Blood Count 9.4 K/mm3 (4.5-10.0)
--- NOTE | 2025-05-26 04:26 | ED_ITS ---
HPI - Nausea/Vomiting/Diarrhea General Chief complaint: Nausea/Vomiting/Diarrhea Stated complaint: n/v, itching s/p knee replacement Time Seen by Provider: 05/26/25 03:54 History of Present Illness HPI Narrative: 59-year-old female presenting to the emergency department with nonproductive cough, nausea and vomiting. Patient is status post total knee arthroplasty on the right side requiring brief hospital stay for some mild dehydration and nausea and vomiting. Patient was discharged home with 10 days of doxycycline, pain control medications with opiates, ibuprofen and 10 days of Xarelto. Patient has been compliant with this medication although she thinks she is having some reactions to the medications that she has been having nausea and vomiting and now feeling like she is developing a yeast infection. Patient was told to stop taking the opiates and she stopped this on Tuesday but still having some nausea. She has been doing 800 mg of ibuprofen and started cutting back on that dose as well. Compliant with the doxycycline which he states she has not had previously. She did not doctor orthopedic doctor provider yet for follow-up visit or these new concerns. States he was trying to go to urgent care this morning but got profoundly nauseous so she came to the ER. States she has been using Pepto-Bismol at home without much help. She states she was having the same symptoms during her hospitalization and she felt better after they gave her medication but she was not prescribed anything for nausea control going home. Has been doing her physical therapy exercises and her right lower extremity or surgery site is not causing any issues at this time. 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) use of non-steroidal anti-inflammatories (nsaid) Degenerative arthritis of knee, bilateral Pure hypercholesterolemia, unspecified Obesity Surgical History Surgical History Status post arthroscopy of right knee January 25, 2022 - Primarily synovectomy History of hysterectomy Family History Family History Sibling Diabetes mellitus Grandparent Lung cancer Social History Social History Smoking status: Never smoker Alcohol intake: current Drinks per week: 1 Alcohol use details: social Substance use: never Substance use type: does not use Lack of Transportation: No Lack of Food: Never True Current Housing: I Have Housing Concerned About Future Housing: No Difficulty Paying Gas/Electric Bills: No Difficulty Paying for Meds: No Currently Unemployed: No Education: High School Diploma/GED Difficulty w/ Childcare or Family Care: No Living arrangements: with family Additional living arrangements comments: [facility] LOO Occupation/Education: occupation 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 Mucous membranes moist. NECK: Supple. CHEST: [Clear to auscultation. No respiratory distress.] HEART: [Regular rate and rhythm]. No murmur heard. [Normal peripheral pulses.] ABDOMEN: [Soft, nondistended], [nontender], [No rigidity or guarding] EXTREMITIES: Right total knee arthroplasty site with clean dry and intact dressings. No signs of erythema, purulent drainage or any signs of infection. No significant tenderness to palpation. Good distal neuro vasculature and mobility. SKIN: Warm, dry, no rash. NEURO: [No focal deficits]. Alert and oriented [x3.] PSYCH: [Normal mood and affect.] Course Vital Signs Vital signs: Vital Signs Temperature 36.7 C 05/26/25 03:46 Pulse Rate 95 05/26/25 03:46 Respiratory Rate 18 05/26/25 03:46 Blood Pressure 139/70 05/26/25 03:46 Pulse Oximetry 100 05/26/25 03:46 Oxygen Delivery Room Air 05/26/25 03:46 Temperature 36.7 C 05/26/25 03:46 Pulse Rate 89 05/26/25 06:09 Respiratory Rate 16 05/26/25 06:09 Blood Pressure 141/63 H 05/26/25 06:09 Pulse Oximetry 98 05/26/25 06:09 Oxygen Delivery Room Air 05/26/25 03:46 MDM MDM Narrative Medical decision making narrative: 59-year-old female presenting to the emergency department with nonproductive cough, nausea and vomiting. Patient is status post total knee arthroplasty on the right side requiring brief hospital stay for some mild dehydration and nausea and vomiting. Patient was discharged home with 10 days of doxycycline, pain control medications with opiates, ibuprofen and 10 days of Xarelto. Patient has been compliant with this medication although she thinks she is having some reactions to the medications that she has been having nausea and vomiting and now feeling like she is developing a yeast infection. Patient was told to stop taking the opiates and she stopped this on Tuesday but still having some nausea. She has been doing 800 mg of ibuprofen and started cutting back on that dose as well. Compliant with the doxycycline which he states she has not had previously. She did not doctor orthopedic doctor provider yet for follow-up visit or these new concerns. States he was trying to go to urgent care this morning but got profoundly nauseous so she came to the ER. States she has been using Pepto-Bismol at home without much help. She states she was having the same symptoms during her hospitalization and she felt better after they gave her medication but she was not prescribed anything for nausea control going home. Has been doing her physical therapy exercises and her right lower extremity or surgery site is not causing any issues at this time. Patient's surgical site appears clean dry and intact without any signs of infection. She has reassuring vital signs without any fever, tachycardia, hypoxemia. Mildly elevated blood pressure. Does have a nonproductive cough during examination. She was hospitalized briefly and does have a cough with nausea vomiting could be viral in nature. Low suspicion infectious pathology from her surgery could be a medication side effect or reaction given her multiple new medications including high strength opiates anti-inflammatories and antibiotics. Discussed these options and potential sources with the patient. Will obtain basic laboratory studies and hydrate her as well as providing Zofran for symptom control. Viral panel swabs obtained. Chest x-ray ordered given the cough. Workup unremarkable. Patient felt better after Zofran. Discussed medication changes and given a new pain medicine as well as instructed to follow-up with her orthopedic doctor and possibly cut back on her doxycycline as it might be the source for symptoms and already completed 7 days of it. Differential Diagnosis Differential Diagnosis: he was hospitalized briefly and does have a cough with nausea vomiting could be viral in nature. Low suspicion infectious pathology from her surgery could be a medication side effect or reaction given her multiple new medications including high strength opiates anti-inflammatories and antibiotics. Lab Data MDM Lab Attestation statement: I personally reviewed the patient's lab results. 05/26/25 04:08 05/26/25 04:08 Labs: Lab Results 05/26/25 05/26/25 Range/Units 04:08 04:49 WBC 9.4 (4.5-10.0) K/mm3 RBC 3.93 L (4.2-5.4) M/mm3 Hgb 11.7 L (12.0-15.0) g/dL Hct 34.8 L (37.0-47.0) % MCV 88.5 (80-100) fl MCH 29.8 (26-34) pg MCHC 33.6 (32-36) g/dl RDW 13.2 (11.5-14.5) % Plt Count 294 D (150-375) k/mm3 MPV 8.7 (7.4-10.4) fl Immature Gran % (Auto) 1.2 H (0-0.5) % Neut % (Auto) 75.3 H (45.5-73.1) % Lymph % (Auto) 16.0 L (18.3-44.2) % [place] % (Auto) 5.1 (2.6-8.5) % Eos % (Auto) 2.0 (0-4.4) % Baso % (Auto) 0.4 (0.2-1.2) % Lymph # (Auto) 1.50 (0.9-3.2) K/mm3 [place] # (Auto) 0.5 (0.1-0.6) K/mm3 Eos # (Auto) 0.2 (0-0.3) K/mm3 Baso # (Auto) 0.0 (0.0-0.1) K/mm3 Abs Immat Gran (auto) 0.11 H (0.00-0.031) K/mm3 Absolute Neuts (auto) 7.0 H (1.3-6.7) K/mm3 Absolute Nucleated RBC 0.000 (0.0-0.012) K/mm3 Nucleated RBC % 0.0 (0.0-0.2) % Sodium 138 (137-145) mmol/L Potassium 3.5 (3.4-5.0) mmol/L Chloride 104 (98-107) mmol/L Carbon Dioxide 27 (22-30) mmol/L Anion Gap 7 (4-12) mmol/L BUN 9 (7-17) mg/dL Creatinine 0.69 L (0.7-1.0) mg/dL Estim Creat Clear Calc 87 ml/min Estimated GFR > 60 (59 - ) Glucose 129 H (65-110) mg/dL Calcium 9.4 (8.4-10.2) mg/dL Total Bilirubin 0.8 (0.2-1.3) mg/dL AST 61 H (14-36) U/L ALT 116 H (6-35) U/L Alkaline Phosphatase 112 (38-126) U/L Total Protein 7.8 (6.3-8.2) g/dL Albumin 4.1 (3.5-5.1) g/dL Lipase 38 (23-300) U/L Urine Color Yellow (Yellow) Urine Appearance Cloudy H (Clear) Urine pH 8.0 (5.0-9.0) Ur Specific [place] 1.013 (1.001-1.035) Urine Protein Negative (Negative) mg/dL Urine Glucose (UA) Negative (Negative) mg/dL Urine Ketones Negative (Negative) mg/dL Ur Blood (Man) Negative (Negative) Urine Nitrate Negative (Negative) Urine Bilirubin Negative (Negative) Urine Urobilinogen 1.0 (<2.0) mg/dL Leukocyte Esterase Rfl 2+ H (Negative) AYAN/UL Urine RBC 0-2 (0-2) /hpf Urine WBC 21-50 H (0-3) /hpf Ur Squamous Epith Cells Moderate (Few) /hpf Urine Bacteria None seen /hpf Urine Casts 0-2 Influenza A (RT-PCR) Negative (Negative) Influenza B (RT-PCR) Negative (Negative) RSV (RT-PCR) Negative (Negative) SARS-CoV-2 RNA (RT-PCR) Negative (Negative) Imaging Data Radiologist's impression: ITS Impressions Chest X-Ray 05/26/25 07:25 IMPRESSION: 1. No acute cardiopulmonary findings given portable technique. Discharge Plan Discharge Clinical Impression: Post-operative nausea and vomiting, Drug-induced nausea and vomiting, Antibiotic-induced yeast infection Patient Disposition: Home Condition: Stable Instructions: Antibiotic Form, Acute Nausea and Vomiting (ED) Additional Instructions: Laboratory studies and x-ray were reassuring. Symptoms consistent with medication induced nausea and vomiting likely from a combination of the anti- inflammatories/ibuprofen, opioids, and the antibiotic. I would recommend holding the remainder of the antibiotic at this time as that is most likely culprit given that you stopped the opiates without any significant improvement and you also have yeast infection symptoms which we have treated with a dose of Diflucan. We will prescribe a different class of pain medications. Please take this with a meal. We have given you a prescription for antiemetics. Call your orthopedics provider for further guidance and follow up and return with any emergent concerns. Patient Language: Ug[place]an Prescriptions: New ondansetron 4 mg tablet,disintegrating 4 mg PO Q8H PRN (Reason: nausea and vomiting) Qty: 20 0RF tramadol 50 mg tablet 50 mg PO Q6H PRN (Reason: pain) Qty: 14 0RF No Action diphenhydramine HCl [Benadryl] 25 mg capsule 50 mg PO HS doxycycline hyclate 100 mg tablet 100 mg PO BID Qty: 20 0RF hydrocodone-acetaminophen 7.5-325 mg tablet 1 tablet PO Q6H PRN (Reason: pain) Qty: 40 0RF Xarelto 10 mg tablet 10 mg PO DAILY Qty: 10 0RF Rx Instructions: 10 days then switch to aspirin Follow-up/Referrals: Stephon Carpenter MD [Primary Care Provider, [facility]] Time of Disposition: 06:04
[2025-05-26 04:32] LABS: Alanine Aminotransferase 116 U/L (6-35); Albumin Level 4.1 g/dL (3.5-5.1); Alkaline Phosphatase 112 U/L (38-126); Anion Gap 7 mmol/L (4-12); Aspartate Amino Transferase 61 U/L (14-36); Bilirubin,Total 0.8 mg/dL (0.2-1.3); Blood Urea Nitrogen 9 mg/dL (7-17); Calcium 9.4 mg/dL (8.4-10.2); Carbon Dioxide 27 mmol/L (22-30); Chloride 104 mmol/L (98-107); Estimated CRCL calculation 87 ml/min; Estimated Glomerular Filt Rate > 60; Glucose 129 mg/dL (65-110); Lipase 38 U/L (23-300); Potassium 3.5 mmol/L (3.4-5.0); Sodium 138 mmol/L (137-145); Total Protein 7.8 g/dL (6.3-8.2)
[2025-05-26] MEDS: ONDANSETRON INJ 4 MG/2 ML VIAL 8 MG IV PUSH (04:45)
[2025-05-26] MEDS: LACTATED RINGERS 1,000 ML 999 ML IV CONT (04:45)
[2025-05-26 04:51] LABS: Influenza A QL RT-PCR Negative (Negative); Influenza B QL RT-PCR Negative (Negative); RSV RNA, RT-PCR Negative (Negative); SARS-CoV-2 RNA PCR Negative (Negative)
[2025-05-26 05:01] LABS: Add Urine Microscopic? YES; Appearance Urine Cloudy (Clear); Glucose Urine UA Negative (Negative); Leukocyte Esterase Ur 2+ LEU/UL (Negative); Nitrate Urine Negative (Negative); Non Pathogenic Casts 0-2; Specific Grav Ur 1.013 (1.001-1.035)
[2025-05-26] MEDS: FLUCONAZOLE 150 MG TABLET PO (06:08)
[2025-05-26 06:09] VITALS: BP 141/63; PULSE 89; RESP 16; O2SAT 98
== END 2025-05-26 06:14 | disposition home or self-care (01) ==
PROVIDERS: Emergency Provider Student in an Organized Health Care Education/Training Program; PCP Family Medicine
DX: R11.2 Nausea with vomiting, unspecified (principal); B37.49 Other urogenital candidiasis; T36.95XA Adverse effect of unspecified systemic antibiotic, initial encounter; Z98.890 Other specified postprocedural states; Z96.651 Presence of right artificial knee joint; Z20.822 Contact with and (suspected) exposure to COVID-19
CPT/HCPCS: 36415; 71045; 80053; 81001; 83690; 85025; 87637; 96361; 96374; 99284; A9270; J2405; J7120